=== PATIENT | female | born 1980 | race Caucasian/White ===

== ENCOUNTER → 2019-04-13 11:11 | Outpatient (BNVA) | payer MEDICAID, SELFPAY | PROVIDERS: Family Provider Family Medicine; Visit Provider Nurse Practitioner Family | DX: M25.561 Pain in right knee (principal) | CPT/HCPCS: 73562 ==

== ENCOUNTER → 2019-06-15 11:09 | Outpatient (BNVA) | payer MEDICAID, SELFPAY | PROVIDERS: Family Provider Family Medicine; Visit Provider Obstetrics & Gynecology | DX: N92.1 Excessive and frequent menstruation with irregular cycle (principal) | CPT/HCPCS: 84443; 85027 ==

== ENCOUNTER → 2019-10-08 11:33 | Outpatient (BNVA) | payer MEDICAID, SELFPAY | PROVIDERS: Family Provider Family Medicine; Visit Provider Emergency Medicine | DX: M79.601 Pain in right arm (principal) | CPT/HCPCS: 73030; 73080; 73110 ==

== ENCOUNTER → 2019-12-01 14:53 | Outpatient (BNVA) | payer MEDICAID, SELFPAY | PROVIDERS: Family Provider Family Medicine; Visit Provider Family Medicine | DX: S49.91XA Unspecified injury of right shoulder and upper arm, initial encounter (principal); J45.30 Mild persistent asthma, uncomplicated; K21.9 Gastro-esophageal reflux disease without esophagitis; J30.1 Allergic rhinitis due to pollen; J44.9 Chronic obstructive pulmonary disease, unspecified; M25.511 Pain in right shoulder | CPT/HCPCS: 73030; 73060 ==

== ENCOUNTER → 2020-01-08 14:16 | Outpatient (BNVA) | payer MEDICAID, SELFPAY | PROVIDERS: Family Provider Family Medicine; Visit Provider Obstetrics & Gynecology | DX: N94.6 Dysmenorrhea, unspecified (principal); N92.1 Excessive and frequent menstruation with irregular cycle; N85.2 Hypertrophy of uterus; N83.01 Follicular cyst of right ovary; N88.8 Other specified noninflammatory disorders of cervix uteri | CPT/HCPCS: 76830; 88305 ==

== ENCOUNTER → 2020-03-21 16:16 | Outpatient (BNVA) | payer MEDICAID, SELFPAY | PROVIDERS: Family Provider Family Medicine; Referring Provider Nurse Practitioner Family; Visit Provider Nurse Practitioner Family | DX: Z20.828 Contact with and (suspected) exposure to other viral communicable diseases (principal); N92.1 Excessive and frequent menstruation with irregular cycle | CPT/HCPCS: 87635 ==

== ENCOUNTER 2020-05-16 14:32 | Outpatient (CLI) | payer MEDICAID, SELFPAY ==
--- NOTE | 2020-05-16 14:45 | MR_ITS ---
WS: [id number] MRI RIGHT SHOULDER HISTORY: M25.519 - Pain in unspecified shoulder COMPARISON: 12/01/2019 shoulder radiograph TECHNIQUE: Multiplanar sequences of the shoulder joint are submitted. Mild AC joint hypertrophy. Increased T2 signal through the soft tissue hypertrophy with thickening of the joint capsule. There is very minimal impingement upon the supraspinatus muscle. Small amount of fluid in the subacromial joint. There is a small osteophyte from the distal undersurface of the acrom ion which is contacting the distal supraspinatus tendon. No fracture or marrow edema. Biceps tendon r emains in normal position. No os acromion. No rotator cuff tears are identified. There is some very mild increased signal in the distal supraspi natus tendon near the acromial osteophyte. No retraction or muscle edema or atrophy. No increased sig nal within the marrow to suggest a fracture. No labral tear. MR/MR shoulder RT wo con* [id number] IMPRESSION: 1. Mild AC joint hypertrophy and arthritis. 2. No rotator cuff tear. 3. Mild encroachment upon the distal supraspinatus tendon by a small osteophyt e from the undersurface of the distal acromion.
== END 2020-05-16 14:33 | disposition home or self-care (01) ==
PROVIDERS: PCP Family Medicine; Visit Provider Orthopaedic Surgery
DX: M13.811 Other specified arthritis, right shoulder (principal); M25.711 Osteophyte, right shoulder
CPT/HCPCS: 73221

== ENCOUNTER → 2020-10-24 11:05 | Outpatient (BNVA) | payer MEDICAID, SELFPAY | PROVIDERS: PCP Family Medicine; Visit Provider Family Medicine | DX: J45.30 Mild persistent asthma, uncomplicated (principal); Z13.6 Encounter for screening for cardiovascular disorders; Z13.1 Encounter for screening for diabetes mellitus; R30.0 Dysuria | CPT/HCPCS: 80053; 80061; 81000; 85025; 87077; 87086; 87184 ==

== ENCOUNTER → 2021-04-20 11:08 | Outpatient (BNVA) | payer MEDICAID, SELFPAY | PROVIDERS: PCP Family Medicine; Visit Provider Family Medicine | DX: Z11.59 Encounter for screening for other viral diseases (principal); Z20.822 Contact with and (suspected) exposure to COVID-19; J06.9 Acute upper respiratory infection, unspecified | CPT/HCPCS: 87635 ==

== ENCOUNTER → 2021-08-16 09:05 | Outpatient (BNVA) | payer MEDICAID, SELFPAY | PROVIDERS: PCP Physician Assistant; Visit Provider Orthopaedic Surgery | DX: M25.511 Pain in right shoulder (principal) | CPT/HCPCS: 99213 ==

== ENCOUNTER 2021-08-30 09:40 | Outpatient (CLI) | payer MEDICAID, SELFPAY ==
--- NOTE | 2021-08-30 09:55 | MM_ITS ---
WS: [id number] BILATERAL SCREENING DIGITAL BREAST TOMOSYNTHESIS MAMMOGRAM WITH CAD HISTORY: SCREENING COMPARISON: None available. Bilateral CC and MLO views with tomosynthesis and synthetic mammography submitted. Computer aided det ection analyzed. Breast composition: The breasts are heterogeneously dense, which may obscure small masses. No suspici ous masses, microcalcifications or architectural distortion. MM/[place] [id number] IMPRESSION: BI-RADS: 1-Negative FOLLOW UP: 1 Year Follow-up
--- NOTE | 2021-08-30 12:55 | PFTS_ITS ---
Date of Study:08/30/21 Date of Dictation: MECHANICS: Forced vital capacity (FVC) is reduced. Forced expiratory volume in one second (FEV1) is normal. FEV1/FVC is normal. FLOW VOLUME LOOP: No peak in the forced expiratory flow volume loop. The patient had difficulty following instructions. LUNG VOLUMES: Total lung capacity (TLC) is normal. Residual volume (RV) is increased. DIFFUSING CAPACITY FOR CARBON MONOXIDE: Normal. INTERPRETATION: The prebronchodilator spirometry is consistent with mild restriction. However, the forced expiratory maneuver may not have been accurate in predicting the forced vital capacity. No postbronchodilator spirometry was performed. The lung volumes are consistent with mild air trapping. Gas exchange (DLCO) is normal. Overall, the pulmonary function test appears to be near normal. MTDD
== END 2021-08-30 09:41 | disposition home or self-care (01) ==
LOC: RT 09:44
PROVIDERS: PCP Physician Assistant; Visit Provider Physician Assistant
DX: R06.00 Dyspnea, unspecified (principal); Z12.31 Encounter for screening mammogram for malignant neoplasm of breast
CPT/HCPCS: 77063; 77067; 94010; 94726; 94729

== ENCOUNTER → 2021-10-24 13:25 | Outpatient (BNVA) | payer MEDICAID, SELFPAY | PROVIDERS: PCP Physician Assistant; Referring Provider Physician Assistant; Visit Provider Obstetrics & Gynecology | DX: N92.0 Excessive and frequent menstruation with regular cycle (principal) | CPT/HCPCS: 83001; 84146; 84443; 84702; 85027 ==

== ENCOUNTER → 2021-11-06 10:35 | Outpatient (BNVA) | payer MEDICAID, SELFPAY | PROVIDERS: PCP Physician Assistant; Visit Provider Obstetrics & Gynecology | DX: N92.1 Excessive and frequent menstruation with irregular cycle (principal); N85.2 Hypertrophy of uterus; N94.6 Dysmenorrhea, unspecified | CPT/HCPCS: 76830; 76856 ==

== ENCOUNTER 2021-12-20 15:43 | Observation (INO) | payer MEDICAID, SELFPAY ==
[2021-12-18 09:05] VITALS: BMI 21.2
[2021-12-18 09:34] LABS: OR HCG Qualitative Urine Negative (Negative)
[2021-12-18 09:53] LABS: Basophils % 0.6 %; Eosinophils # 0.1 10^3/uL (0.0-0.8); Eosinophils % 1.3 %; Hematocrit 41.9 % (37.0-47.0); Hemoglobin 12.9 g/dL (11.5-15.3); Lymphocytes # 1.6 10^3/uL (0.8-4.8); Lymphocytes % 31.6 %; Mean Corpuscular HGB Conc 30.8 g/dL (30.0-36.0); Mean Corpuscular Hemoglobin 26.4 pg (28.0-34.0); Mean Corpuscular Volume 85.7 fl (81-99); Mean Platelet Volume 9.5 fL (7.4-10.4); Monocytes # 0.4 10^3/uL (0.2-0.9); Monocytes % 6.9 %; Neutrophils # 3.07 10^3/uL (1.8-7.7); Neutrophils % 59.2 %; Nucleated Red Blood Cells % 0 %; Platelet Count 404 10^3/cmm (130-400); Red Blood Count 4.89 10^6/uL (4.1-5.3); Red Cell Distribution Width 13.1 % (12.1-15.1); White Blood Count 5.2 10^3/uL (4.0-10.0)
[2021-12-18 10:26] LABS: Add Urine Culture? Yes; Add Urine Microscopic? YES; Bacteria Urine 1+ /hpf; Bilirubin Urine Neg (Negative); Blood Urine 3+ (Negative); Glucose Urine UA Norm (Normal); Ketones Urine Negative (Negative); Leukocyte Esterase Urine 2+ (Negative); Nitrate Urine Negative (Negative); Protein Urine Neg (Negative); RBC Urine >100 /hpf (0-2); Squamous Epithelial Cell Urine 0-4 /hpf (0-5); Urine Appearance Hazy (CLEAR); Urine Color Yellow (Yellow); Urobilinogen Urine Norm (Negative); WBC Urine 15-25 /hpf (0-5); pH Urine 6 (5-7)
[2021-12-18 10:34] LABS: Albumin Level 4.4 g/dL (3.5-5.2); Chloride 106 mmol/L (98-107); Potassium 4.8 mmol/L (3.5-5.1); Sodium 144 mmol/L (136-145)
[2021-12-18 10:48] LABS: Alanine Aminotransferase 12 U/L (0-33); Alkaline Phosphatase 65 U/L (35-105); Anion Gap 15.8 (5-19); Aspartate Amino Transferase 16 U/L (0-32); Blood Urea Nitrogen 9 mg/dL (6-20); Calcium 9.6 mg/dL (8.5-10.5); Carbon Dioxide 27 mmol/L (22-29); Globulin 3.8 g/dL (1.3-4.6); Glomerular Filtration Rate 78.7 mL/min (90-130); Glucose 107 mg/dL (65-115); Osmolality Calculated 297 mOsm/kg (285-295); Total Bilirubin 0.3 mg/dL (0.15-1.2); Total Protein 8.2 g/dL (6.6-8.7)
--- NOTE | 2021-12-18 16:41 | ANES.PREANE2 ---
Pre-Anesthetic Assessment Height/Weight: Height 1.6 m Weight 54.431 kg Preop Diagnosis: Dysmenorrhea, chronic pelvic pain Operation Date: 12/20/21 09:35 Proposed Procedures p Total Vaginal Hysterectomy 72362,R10.2(Not Applicable) - Billy Tran MD Familial anesthetic complications: None Was Beta Mariam taken within 24 hours: N/A Was Clonidine taken within 24 hours: N/A Social No alcohol and No tobacco Exam alert, oriented x 3, clear to auscultation bilaterally and regular rate & rhythm Airway Submandibular: within normal limits Cervical ROM: within normal limits Mallampati: Class I Dentition: full Comments: Comments: Missing teeth History/ROS No significant complaints Pulmonary Asthma CV/HEM None reported METS > 4 None reported Menometrorrhagia Hepatic None reported GI Gastroesophageal Reflux Disease (Well controlled ) Dysphagia Metabolic None reported Musc/skel None reported Neuropsych None reported Anesthetic Plan ASA status: 2 Anesthesia: Anesthesia Evaluation and General Other: We discussed risk and benefits of general anesthesia including PONV, sore throat (sometimes severe), corneal abrasion, positioning and peripheral nerve injuries, life threatening allergic reaction, post operative ICU admission requiring prolonged intubation, stroke, heart attack, , and rare incidences of recall. Patient consents to proceed with general anesthesia. Risk of > 500 ml blood loss (7ml/kg in children): No Medications/Allergies Home Medications Medication Instructions Recorded Confirmed Last Taken Type albuterol sulfate 2.5 mg inhalation Q4H PRN 05/31/20 12/18/21 Unknown History shortness of breath or wheezing miscellaneous medical supply See Rx Instructions miscellaneous 05/31/20 12/18/21 Unknown Rx .COMPLEX #1 ea albuterol sulfate 90 mcg/actuation 2 puff inhalation QID PRN 01/10/21 12/18/21 Unknown Rx aerosol inhaler (ProAir HFA) shortness of breath or wheezing 30 days #18 grams omeprazole 40 mg capsule,delayed 40 mg PO BID 30 days #60 caps 01/10/21 12/18/21 Unknown Rx release azelastine-fluticasone 137 mcg-50 1 spray intranasal BID 04/20/21 12/18/21 Unknown History mcg/spray nasal spray levocetirizine 5 mg tablet (Xyzal) 5 mg PO BID 04/20/21 12/18/21 Unknown History montelukast 10 mg tablet 10 mg PO DAILY 04/20/21 12/18/21 Unknown History Allergies Allergy/AdvReac Type Severity Reaction Status Date / Time aspirin Allergy ADR-Nausea Verified 12/18/21 09:01 [facility] Anesthesia Medical History Asthma GERD (gastroesophageal reflux disease) Insomnia Menometrorrhagia Seasonal allergic rhinitis Surgical History H/O tubal ligation (09/22/07) Performed by Dr. Martinez at [facility] in [place], [place] Family History Father Heart disease Family/Other Breast cancer maternal aunt, 30's Grandmother Hypertension maternal Denies family history of Colon cancer Ovarian cancer Diabetes Clotting disorder Hyperlipidemia Anesthesia complication Bleeding disorder Cancer Uterine cancer Thyroid condition Stroke Social History Smoking and tobacco status: never smoked Alcohol intake: never Female Reproductive History Date of last menstrual period: 04/09/19 Spontaneous abortions: No Data Anesthesia : 12/18/21 09:15 12/18/21 09:15 Short CBC 12/18/21 Range/Units 09:15 WBC 5.2 (4.0-10.0) 10^3/uL Hgb 12.9 (11.5-15.3) g/dL Hct 41.9 (37.0-47.0) % MCV 85.7 (81-99) fl Plt Count 404 H (130-400) 10^3/cmm Neut % (Auto) 59.2 % Neut # (Auto) 3.07 (1.8-7.7) 10^3/uL BMP 12/18/21 09:15 Sodium 144 Potassium 4.8 Chloride 106 Carbon Dioxide 27 BUN 9 Creatinine 0.8 Glucose 107 Calcium 9.6 Liver Function 12/18/21 Range/Units 09:15 Total Bilirubin 0.3 (0.15-1.2) mg/dL AST 16 (0-32) U/L ALT 12 (0-33) U/L Alkaline Phosphatase 65 (35-105) U/L Albumin 4.4 (3.5-5.2) g/dL Urine 12/18/21 Range/Units 08:57 Urine Color Yellow (Yellow) Urine Appearance Hazy A (CLEAR) Urine pH 6 (5-7) Ur Specific [place] 1.010 (1.005-1.030) Urine Protein Neg (Negative) Urine Glucose (UA) Norm (Normal) Urine Ketones Negative (Negative) Urine Nitrate Negative (Negative) Urine Bilirubin Neg (Negative) Ur Leukocyte Esterase 2+ H (Negative) Urine RBC >100 H (0-2) /hpf Urine WBC 15-25 H (0-5) /hpf Blood Bank 12/18/21 09:15 Blood Type A Positive Rho(D) Type Positive Antibody Screen Negative Cardiac Studies: No Data to Display
[2021-12-20] VITALS (15 sets, daily range): BP systolic 88–133; BP diastolic 54–97; PULSE 75–103; RESP 14–20; TEMP 36.3–37.1; O2SAT 93–98
[2021-12-20] MEDS: sodium chloride 0.9% 500 ML IV (11:38)
--- NOTE | 2021-12-20 11:39 | P.ANESUD_ITS ---
Pre-Anesthetic Update Pre-Anesthetic Assessment: Date of Surgery/Procedure: 12/20/21 Preop Lakia gnosis: Abnormal uterine bleeding, chronic pelvic pain Proposed Procedure: Operation Date: 12/20/21 12:55 Proposed Procedures p Total Vaginal Hysterectomy 31838,R10.2(Not Applicable) - Billy Tran MD Any changes to Pre-Anesthetic Assessment?: No Last Intake: Intake Last Liquid Date 12/19/21 Last Liquid Time 18:00 Last Solid Date 12/19/21 Last Solid Time 18:00 Vitals: Temperature 98.3 F 12/20/21 11:16 Temperature Source Temporal Artery S can 12/20/21 11:16 Pulse Rate 103 H 12/20/21 11:16 Respiratory Rate 18 12/20/21 11:16 Blood Pressure 133/97 12/20/21 11:16 Blood Pressure Vicenta n 109 12/20/21 11:16 Pulse Oximetry 98 12/20/21 11:16 Oxygen Delivery Me thod 12/20/21 11:21 Exam: Pre-Anes Outpt Exam: alert, oriented x 3, clear to auscultation bilaterally and regular rate & rhythm Cardiac Studies: No Data to Display
[2021-12-20] MEDS: scopolamine 1.5 Patch 1 PATCH TRANSDERMA (11:41)
[2021-12-20] MEDS: sodium chloride 0.9% 1,000 ML 30 ML IV (12:25)
--- NOTE | 2021-12-20 13:44 | W.PM.OPSUD ---
Surgery/Procedure H&P Update DATE OF PROCEDURE: December 20, 2021 DATE H&P PERFORMED: 12/18/21 H&P UPDATE INFORMATION: I have reviewed H&P completed within last 30 days, I have examined patient prior to procedure and No changes to prior documentation PREOP DIAGNOSIS: Abnormal uterine bleeding, chronic pelvic pain PLANNED PROCEDURE: Operation Date: 12/20/21 12:55 Proposed Procedures p Total Vaginal Hysterectomy 83434,R10.2(Not Applicable) - Billy Tran MD
[2021-12-20] MEDS: ceFOXitin 2,000 MG in sodium chloride 0.9% (plus) 50 ML 100 MG IV (14:05)
--- NOTE | 2021-12-20 15:34 | P.OP_ITS ---
Operative Report Date of procedure: December 20, 2021 Pre-op diagnosis: Preop Diagnosis Abnormal uterine bleeding, chronic pelvic pain Post-op diagnosis: Same as above Post-op findings: Enlarged uterus Procedure done: Total vaginal history Specimens removed/disposition: Uterus left and right fallopian tube Surgeon: Billy Tran MD Estimated blood loss (mL): 75 IV fluids (mL): 1,200 Urine output (mL): 200 Complications: None Procedure: After informed consent and risks, benefits, indications and alternatives reviewed with the patient was taken to the operating room. The patient was placed in dorsal lithotomy position prepped, and draped in the usual sterile fashion. The pre-procedure timeout verifying the correct patient, procedure, site and side, could not requirements was performed and acknowledge by the OR team. A Medrano catheter was placed. A Bookwalter vaginal retractor was placed into the vagina in usual manner visualize the cervix. Cervix was grasped with a single tooth tenaculum and circumferentially infiltrated with 2% lidocaine with epinephrine. Then cervix was circumferentially incised with bovie and the bladder was dissected off the pubovesical cervical fascia anteriorly with a sponge stick and Metzenbaum scissors. The anterior peritoneal reflection was identified and the anterior cul-de-sac was entered sharply with Metzenbaum scis sors. The same procedure was performed posteriorly and a posterior colpotomy was made through the posterior cul-de-sac space without difficulty and the posterior blade of the Bookwalter vaginal retractor was advanced posteriorly into the cul-de-sac. At this time, the left and right uterosacral ligaments were isolated and ligated with 0 Vicryl. The Enseal device was placed over the uterosacral ligaments on either side and was then used in a serial fashion up through the cardinal ligaments bilaterally cross-clamped, cut, and sealed with the Enseal device. Finally, the uterine arteries were cross-clamped, cut, sealed and ligated with the Enseal device. Hemostasis was assured. The broad ligaments were then serially clamped, sealed and cut with the Enseal device on both sides. Excellent hemostasis was visualized. Both cornua were clamped, sealed and cut with the Enseal device. Then the pedicles were then suture ligated with excellent hemostasis. The uterus was excised and submitted for pathologic evaluation. No other abnormalities were noted in the pelvic cavity. Then the right side tubo-ovarian ligament was identified. The ureter was confirmed along the pelvic side wall and peristalsis was noted. The Enseal device was then used to clamp, sealed and transcepted at middistance, again being sure to be clear of the ureter and the fallopian tube were removed. The same process was then repeated on the left side. Good hemostasis was assure on both sides. The peritoneum was then closed in a pursestring fashion with 0 Vicryl suture. The vaginal cuff angles were closed with [id number] #0 Vicryl suture on both sides and transfixed with the ipsilateral cardinal and uterosacral ligaments. The remainder of the vaginal cuff was closed with #0 Vicryl in a running locked fashion. At this time, instruments were removed from the vagina at hemostasis assured. The patient was given methylene blue IV. The Medrano catheter noted with clear en urine. The patient was taken out of dorsal lithotomy position and awakened from the general anesthesia. The patient tolerated the procedure well and was taken to the PACU recovery room in a stable condition. Sponge, lap, needle and instruments counts were correct x3.
--- NOTE | 2021-12-20 15:53 | SUR.PHASEI ---
1545 PT TO PACU 5 PT AWAKES TO VOICE, IV PATENT TO LT WRIST @20 WITH NS 800 ML UP AT KVO RATE PER GRAVITY , ABDOMEN SOFT NELLY PAD D/I , CAMPBELL TO DD WITH YELLOW URINE STATLOCK TO RT IINNER THIGH, SCDS ON BILAT AND WORKING, ID BRACELET TO RT WRIST , PT ID'D WITH 2 IDENTIFIERS.
--- NOTE | 2021-12-20 16:02 | SUR.PHASEI ---
1603 PT MORE ALERT TAKING ICECHIPS PT VERBALLY DENIES PAIN AND NAUSEA, VSS MONITOR SR WITH NO ECTOPY NOTED, IV TO LT WRIST PATENT AT MOD RATE BP 99/63 , ABDOMEN SOFT TO PALPATION.
--- NOTE | 2021-12-20 16:27 | SUR.PHASEI ---
REPORT CALLED TO FLOOR PT FAMIILY UPDATED AND WILL BE IN OB WAITING ROOM, VSS NELLY PAD D/I ABDOMEN SOFT.
--- NOTE | 2021-12-20 17:10 | ANE.PACU2 ---
Inpatient post-anesthesia follow up: Airway intact: Yes Vital signs: Temperature 97.4 F Pulse Rate 82 Respiratory Rate 16 Blood Pressure 102/66 Pulse Oximetry 94 Oxygen Delivery Me thod Room Air Oxygen Flow Rate 8 Fraction of Inspir ed Oxygen Hydration adequate: Yes Nausea and vomiting: No Pain level: 1 Mental status: Baseline
[2021-12-20] MEDS: pantoprazole DR 40 mg Tablet PO (19:08)
[2021-12-20] MEDS: docusate sodium 100 mg Capsule PO (19:08)
[2021-12-20] MEDS: ketorolac 30 mg/mL INJ IVP (21:16)
[2021-12-21 05:22] LABS: Hematocrit 36.1 % (37.0-47.0); Hemoglobin 11.4 g/dL (11.5-15.3); Mean Corpuscular HGB Conc 31.6 g/dL (30.0-36.0); Mean Corpuscular Hemoglobin 26.8 pg (28.0-34.0); Mean Corpuscular Volume 84.7 fl (81-99); Mean Platelet Volume 9.3 fL (7.4-10.4); Platelet Count 350 10^3/cmm (130-400); Red Blood Count 4.26 10^6/uL (4.1-5.3); White Blood Count 11.1 10^3/uL (4.0-10.0)
[2021-12-21 05:47] VITALS: BP 112/64; PULSE 90; RESP 14; O2SAT 95
[2021-12-21] MEDS: ibuprofen 800 mg tablet PO (09:36)
[2021-12-21] MEDS: docusate sodium 100 mg Capsule PO (09:36)
--- NOTE | 2021-12-21 09:39 | PM.OBGYDC ---
Discharge Providers GRINDING MACHINE OPERATOR Date of Admission: 12/20/21 15:43 Date of Discharge: 12/21/21 Attending Provider at Admission: Billy Tran MD Attending Provider at Discharge: Billy Tran MD Primary GRINDING MACHINE OPERATOR: Billy rTan MD Primary Care Provider: Ludy Nobles Reason for Visit Reason for Visit: Brief History: Mrs. Han 41-year-old female with a history of chronic pelvic pain Hospital Course Hospital Course Mrs. Han 41-year-old female admitted for planned total vaginal hysterectomy. The procedure was performed without complication. Overnight observation was uneventful. Adequate urine output. He is afebrile and hemodynamically stable postoperative day 1. Tolerating diet well. Ambulating without difficulty. Counseled regarding pelvic rest for 6 weeks (no sex, no tampons, no vaginal douches). Return to the emergency room if any fever, increased bleeding or pain. Physical Exam Narrative: GA: Alert and oriented ?3. HEENT: WNL. Heart: Regular rate and rhythm. Lungs: Clear to auscultation bilaterally. Abdomen: Bowel sounds present, nontender, minimal tenderness, incision clean and dry, no redness, pain or edema. [employer] COACH: Scant bleeding. Extremities: No edema, no cyanosis, no calves pain. Urinary Catheter Management: Medrano Latex: Cath Placed During This Visit: yes, but has since been removed by the nurse Reason for Continuing Indwelling Catheter: Decision to DC Catheter Urinary Catheter Date of Insertion: 12/20/21 Urinary Catheter Time of Insertion: 14:32 Date Urinary Catheter Removed: 12/21/21 Time Urinary Catheter Discontinued: 05:00 History History History 4 Term 3 0 Miscarriages/Ectopic 1 Living Children 3 Discharge Data Studies Completed and Pending Pending at discharge Category Date Time Status Pathology: Surgical [PTH] Routine Pth 12/20/21 15:40 Received Laboratory Results WBC 11.1 10^3/uL (4.0-10.0) H 12/21/21 05:10 RBC 4.26 10^6/uL (4.1-5.3) 12/21/21 05:10 Hgb 11.4 g/dL (11.5-15.3) L 12/21/21 05:10 Hct 36.1 % (37.0-47.0) L 12/21/21 05:10 MCV 84.7 fl (81-99) 12/21/21 05:10 MCH 26.8 pg (28.0-34.0) L 12/21/21 05:10 MCHC 31.6 g/dL (30.0-36.0) 12/21/21 05:10 RDW 13.0 % (12.1-15.1) 12/21/21 05:10 Plt Count 350 10^3/cmm (130-400) 12/21/21 05:10 MPV 9.3 fL (7.4-10.4) 12/21/21 05:10 Neut % (Auto) 59.2 % 12/18/21 09:15 Lymph % (Auto) 31.6 % 12/18/21 09:15 [place] % (Auto) 6.9 % 12/18/21 09:15 Eos % (Auto) 1.3 % 12/18/21 09:15 Baso % (Auto) 0.6 % 12/18/21 09:15 Neut # (Auto) 3.07 10^3/uL (1.8-7.7) 12/18/21 09:15 Lymph # (Auto) 1.6 10^3/uL (0.8-4.8) 12/18/21 09:15 [place] # (Auto) 0.4 10^3/uL (0.2-0.9) 12/18/21 09:15 Eos # (Auto) 0.1 10^3/uL (0.0-0.8) 12/18/21 09:15 Baso # (Auto) 0.0 10^3/uL (0.0-0.1) 12/18/21 09:15 Nucleated RBC % (auto) 0 % 12/18/21 09:15 Nucleated RBCs # 0.0 /100WBC 12/18/21 09:15 Sodium 144 mmol/L (136-145) 12/18/21 09:15 Potassium 4.8 mmol/L (3.5-5.1) 12/18/21 09:15 Chloride 106 mmol/L (98-107) 12/18/21 09:15 Carbon Dioxide 27 mmol/L (22-29) 12/18/21 09:15 Anion Gap 15.8 (5-19) 12/18/21 09:15 BUN 9 mg/dL (6-20) 12/18/21 09:15 Creatinine 0.8 mg/dL (0.5-0.9) 12/18/21 09:15 GFR Calculation 78.7 mL/min (90-130) L 12/18/21 09:15 Glucose 107 mg/dL (65-115) 12/18/21 09:15 Calculated Osmolality 297 mOsm/kg (285-295) H 12/18/21 09:15 Calcium 9.6 mg/dL (8.5-10.5) 12/18/21 09:15 Total Bilirubin 0.3 mg/dL (0.15-1.2) 12/18/21 09:15 AST 16 U/L (0-32) 12/18/21 09:15 ALT 12 U/L (0-33) 12/18/21 09:15 Alkaline Phosphatase 65 U/L (35-105) 12/18/21 09:15 Total Protein 8.2 g/dL (6.6-8.7) 12/18/21 09:15 Albumin 4.4 g/dL (3.5-5.2) 12/18/21 09:15 Globulin 3.8 g/dL (1.3-4.6) 12/18/21 09:15 Urine Color Yellow (Yellow) 12/18/21 08:57 Urine Appearance Hazy (CLEAR) A 12/18/21 08:57 Urine pH 6 (5-7) 12/18/21 08:57 Ur Specific [place] 1.010 (1.005-1.030) 12/18/21 08:57 Urine Protein Neg (Negative) 12/18/21 08:57 Urine Glucose (UA) Norm (Normal) 12/18/21 08:57 Urine Ketones Negative (Negative) 12/18/21 08:57 Urine Blood 3+ (Negative) H 12/18/21 08:57 Urine Nitrate Negative (Negative) 12/18/21 08:57 Urine Bilirubin Neg (Negative) 12/18/21 08:57 Urine Urobilinogen Norm mg/dL (Negative) 12/18/21 08:57 Ur Leukocyte Esterase 2+ (Negative) H 12/18/21 08:57 Urine RBC >100 /hpf (0-2) H 12/18/21 08:57 Urine WBC 15-25 /hpf (0-5) H 12/18/21 08:57 Ur Squamous Epith Cells 0-4 /hpf (0-5) H 12/18/21 08:57 Amorphous Sediment Not Reportable 12/18/21 08:57 Urine Bacteria 1+ /hpf (NONE) H 12/18/21 08:57 Urine HCG, Qual Negative (Negative) 12/18/21 08:57 Blood Type A Positive 12/18/21 09:15 Rho(D) Type Positive 12/18/21 09:15 Antibody Screen Negative 12/18/21 09:15 Vitals Last Vital Signs Temp 98.0 F 12/20/21 23:45 Pulse 90 12/21/21 05:47 Resp 14 12/21/21 05:47 BP 112/64 12/21/21 05:47 Pulse Ox 95 12/21/21 05:47 O2 Del Method 12/21/21 05:47 O2 Flow Rate 8 12/20/21 15:50 Discharge Plan Discharge Patient Disposition: Home Condition: Stable Prescriptions: New hydrocodone-acetaminophen 5-325 mg tablet 1 tab PO Q4H PRN (Reason: pain) Qty: 20 0RF acetaminophen 325 mg capsule 325 mg PO Q4H PRN (Reason: fever or pain) Qty: 60 0RF Continued albuterol sulfate 2.5 mg /3 mL (0.083 %) solution for nebulization 2.5 mg inhalation Q4H PRN (Reason: shortness of breath or wheezing) miscellaneous medical supply Misc See Rx Instructions miscellaneous .COMPLEX Qty: 1 0RF Rx Instructions: nebulizer machine and new tubing/supplies miscellaneous; montelukast 10 mg tablet 10 mg PO DAILY levocetirizine [Xyzal] 5 mg tablet 5 mg PO BID azelastine-fluticasone 137-50 mcg/spray spray,non-aerosol 1 spray intranasal BID Rx Instructions: administer into each nostril omeprazole 40 mg capsule,delayed release(DR/EC) 40 mg PO BID 30 Days Qty: 60 5RF albuterol sulfate [ProAir HFA] 90 mcg/actuation HFA aerosol inhaler 2 puff INHALATION QID PRN (Reason: shortness of breath or wheezing) 30 Days Qty: 18 5RF Discharge Orders: Discharge Order (Routine); Ordered 12/21/21 Ordered By: Billy Li: Billy Tran MD [Physician] - 2 weeks Discharge Diet: Advance as tolerated and Usual diet Discharge Activity: Limit activity as instructed Patient Instructions: Opioid Safety, Vaginal Hysterectomy (GEN) Activity Restrictions/Additional Instructions: 1. Please call [facility] on next working day to make your post-operative appointment in 2 weeks. 2. Please stay home until you come back to the clinic on first post-operative check up. 3. Please follow instructions on your medications CAREFULLY. 4. If you have abdominal incision, do not cover it unless dressing is necessary because of drainage. OK to shower, but avoid bath. Leave steri-strips until they fall off. If they are still on one week after surgery, you may remove them. 5. If you had vaginal surgery or vaginal repair, Dr. Tran may instruct you to take SITZ bath. 6. Yellow, blood tinged odorous vaginal discharge is usually normal after hysterectomy or vaginal surgeries. 7. No sexual intercourse, tampons, or douches until you are completely released from the post-operative care. 8. Avoid constipation by eating right and maybe using some Metamucil or Milk of Magnesia. 9. All prescription refills are given during the working hours. Please do no wait till it runs out. Call the clinic at [phone] before your medication runs out. The clinic will get in touch with your doctor to prescribe medications if necessary. 10. Please remain within 40 mile radius from our hospital because emergencies do happen now and then during the post-operative period. 11. If you have stairs at home, take one step at a time slowly and minimize the number of trips. It helps to stay in one floor for the next few days. No lifting except what you can lift by one hand until you are released from the post-operative care. 12. Driving is discouraged until you are well healed. It may be 3-4 weeks before you feel strong enough to drive. You should be able to turn and look through the rear window without pain and you should be able to push the brake pedal very hard without pain before you drive. No fast rules, but SAFETY should be your primary concern. DO NOT drive if you are on sedating medications such as narcotics. 13. Call the clinic (during working hours) to make urgent appointment or go to the Emergency room, if any of the following occurs: i. Vaginal bleeding becomes heavy, more than a period. ii. Incision becomes red and sore, or drains pus. iii. Your temperature is over 100.4 or you have chill. iv. IV site becomes red and swollen (a little ``knot?? is usually OK) v. Persistent nausea and vomiting vi. Persistent constipation or diarrhea vii. Rash or allergic reaction to medications. Discharge Attestations GRINDING MACHINE OPERATOR Time Spent in Discharge Care*: greater than 30 min Coding Level of Care Code Acute Pipe Foreman for Janel Patel
[2021-12-21 11:56] VITALS: BP 112/73; PULSE 84; RESP 17; TEMP 36.9
== END 2021-12-21 11:58 | disposition home or self-care (01) ==
LOC: OBGYN 15:43
PROVIDERS: Admitting Provider Obstetrics & Gynecology; PCP Physician Assistant; Visit Provider Obstetrics & Gynecology
PROC: (CPT 58262; principal; 2021-12-20 12:45)
DX: N93.9 Abnormal uterine and vaginal bleeding, unspecified (principal); R10.2 Pelvic and perineal pain; G89.29 Other chronic pain; K21.9 Gastro-esophageal reflux disease without esophagitis
CPT/HCPCS: 58262; 36415; 80053; 81001; 81025; 84703; 85025; 85027; 86850; 86900; 87086; 88307; G0378; J0694; J1100; J1170; J1885; J2250; J2405; J2704; J2710; J3010; J3490; J7030; J7040; Q9968

== ENCOUNTER 2022-09-11 10:38 | Outpatient (CLI) | payer MEDICAID, SELFPAY ==
--- NOTE | 2022-09-11 10:52 | MM_ITS ---
WS: [id number] BILATERAL 3D TOMOSYNTHESIS DIGITAL SCREENING MAMMOGRAPHY WITH CAD CLINICAL INFORMATION: SCREENING HISTORY: Screening mammogram. No current complaints. COMPARISON: 2021 TECHNIQUE: Bilateral CC and MLO views. FINDINGS: Scattered fibroglandular densities bilaterally. Slightly asymmetric density anterior LEFT breast stefania ures 12 mm best seen on the MLO view. Recommend LEFT breast diagnostic mammography and ultrasound if persistent. RIGHT breast is unremarkable and unchanged. MM/[place] [id number] IMPRESSION: BI-RADS: 0-Incomplete: Need additional imaging evaluation FOLLOW UP: Need Additional Imaging Recommend LEFT breast diagnostic mammography with spot compression views and ul trasound if persistent.
== END 2022-09-11 10:39 | disposition home or self-care (01) ==
PROVIDERS: PCP Family Medicine; Visit Provider Family Medicine
DX: Z12.31 Encounter for screening mammogram for malignant neoplasm of breast (principal)
CPT/HCPCS: 77063; 77067

== ENCOUNTER 2022-10-02 09:14 | Outpatient (CLI) | payer MEDICAID, SELFPAY ==
--- NOTE | 2022-10-02 09:20 | MM_ITS ---
WS: [id number] LEFT 3D TOMOSYNTHESIS DIGITAL MAMMOGRAPHY WITH CAD CLINICAL INFORMATION: ABNORMAL MAMMO HISTORY: Additional views COMPARISON: September 11, TECHNIQUE: 3 views of the left breast were obtained. FINDINGS: Scattered fibroglandular densities of the left breast. Stable previously described faint asymmetric d ensity anterior LEFT breast measuring 12 mm near the 12 to 1:00 position partially compresses out on the spot compression views. Ultrasound described below. ULTRASOUND BREAST LEFT TECHNIQUE: Ultrasound left breast focused area of concern. CLINICAL INFORMATION: ABNORMAL MAMMO FINDINGS: Ultrasound LEFT breast upper-outer quadrant. No suspicious cystic or solid lesions. Normal underlying gastric tissue. No suspicious lesions to target for biopsy. Findings are benign. Recommend return to annual screening mammography. MM/[place] [id number] IMPRESSION: BI-RADS: 2-Benign FOLLOW UP: 1 Year Follow-up Recommend return to annual screening mammography.
== END 2022-10-02 09:15 | disposition home or self-care (01) ==
LOC: RAD 09:16
PROVIDERS: PCP Family Medicine; Visit Provider Family Medicine
DX: R92.8 Other abnormal and inconclusive findings on diagnostic imaging of breast (principal)
CPT/HCPCS: 76642; 77061; G0279

== ENCOUNTER → 2022-10-02 12:08 | Outpatient (BNVA) | payer MEDICAID, SELFPAY | PROVIDERS: PCP Family Medicine; Visit Provider Obstetrics & Gynecology | DX: R32 Unspecified urinary incontinence (principal) | CPT/HCPCS: 81000 ==

== ENCOUNTER 2022-10-16 13:47 | Outpatient (CLI) | payer MEDICAID, SELFPAY ==
--- NOTE | 2022-10-16 14:15 | USR_ITS ---
PROCEDURE INFORMATION: Exam: US Nonobstetric Pelvis; Complete Exam date and time: 10/16/2022 2:53 PM Age: 41 years old Clinical indication: Pelvic pain and perianal pain; Prior surgery; Surgery date: 1-6 months; Surgery type: Hysterectomy; Additional info: R10.2 - pelvic and perineal pain, S/P hysterectomy TECHNIQUE: Imaging protocol: Transabdominal pelvic nonobstetric ultrasound. Complete exam. Real time ultrasound with image documentation. COMPARISON: US pelv w/transvag [id number] 11/06/2021 10:38 AM FINDINGS: Uterus: Uterus has been removed. Right ovary/adnexa: Right ovary is unremarkable in size measuring 1.9 x 1.9 x 1.9 cm. Normal Doppler flow. No adnexal mass. Left ovary/adnexa: Left ovary is unremarkable in overall size and contour measuring 3.1 x 2.0 x 2.4 cm. 1.6 x 1.2 cm complex cyst arising the left ovary likely functional in nature. Normal Doppler flow. No adnexal mass. Vagina: Visualized vaginal cuff is unremarkable. Intraperitoneal space: There are no masses or free fluid seen in the cul-de-sac. Urinary bladder: Not visualized.. US/US pelv w/transvag [id number] IMPRESSION: 1. 1.6 cm complex cystic structure left ovary likely functional in nature. 2. Prior hysterectomy.
== END 2022-10-16 13:48 | disposition home or self-care (01) ==
PROVIDERS: PCP Family Medicine; Visit Provider Obstetrics & Gynecology
DX: R10.2 Pelvic and perineal pain (principal); G89.29 Other chronic pain; Z90.710 Acquired absence of both cervix and uterus
CPT/HCPCS: 76830; 76856

== ENCOUNTER 2022-11-14 08:19 | Observation (INO) | payer MEDICAID, SELFPAY ==
[2022-11-09 10:47] VITALS: BMI 23.0
[2022-11-09 11:11] LABS: Basophils % 0.4 %; Eosinophils # 0.1 10^3/uL (0.0-0.8); Eosinophils % 1.1 %; Hematocrit 41.9 % (37.0-47.0); Hemoglobin 13.3 g/dL (11.5-15.3); Lymphocytes % 27.1 %; Mean Corpuscular HGB Conc 31.7 g/dL (30.0-36.0); Mean Corpuscular Hemoglobin 26.8 pg (28.0-34.0); Mean Corpuscular Volume 84.5 fl (81-99); Mean Platelet Volume 9.2 fL (7.4-10.4); Monocytes # 0.7 10^3/uL (0.2-0.9); Monocytes % 9.1 %; Neutrophils % 61.8 %; Nucleated Red Blood Cells % 0 %; Platelet Count 322 10^3/cmm (130-400); Red Blood Count 4.96 10^6/uL (4.1-5.3); Red Cell Distribution Width 13.5 % (12.1-15.1); White Blood Count 7.5 10^3/uL (4.0-10.0)
[2022-11-09 11:19] LABS: Urine Appearance Hazy (CLEAR); Urine Color Yellow (Yellow)
[2022-11-09 11:20] LABS: Add Urine Microscopic? YES; Bacteria Urine 1+ /hpf; Bilirubin Urine Neg (Negative); Blood Urine 2+ (Negative); Glucose Urine UA Norm (Normal); Ketones Urine Negative (Negative); Leukocyte Esterase Urine Negative (Negative); Nitrate Urine Negative (Negative); Protein Urine Neg (Negative); RBC Urine RARE /hpf (0-2); Urobilinogen Urine Norm (Negative); WBC Urine RARE /hpf (0-5); pH Urine 5 (5-7)
[2022-11-09 11:38] LABS: Alanine Aminotransferase 15 U/L (0-33); Albumin Level 4.2 g/dL (3.5-5.2); Alkaline Phosphatase 52 U/L (35-105); Anion Gap 13.1 (5-19); Aspartate Amino Transferase 15 U/L (0-32); Blood Urea Nitrogen 14 mg/dL (6-20); Calcium 9.5 mg/dL (8.5-10.5); Carbon Dioxide 26 mmol/L (22-29); Chloride 102 mmol/L (98-107); Creatinine Clr Calc Pharmacy 106.1049; Globulin 3.4 g/dL (1.3-4.6); Glomerular Filtration Rate 109.6 mL/min (90-130); Glucose 107 mg/dL (65-115); Osmolality Calculated 285 mOsm/kg (285-295); Potassium 4.1 mmol/L (3.5-5.1); Sodium 137 mmol/L (136-145); Total Bilirubin 0.3 mg/dL (0.15-1.2); Total Protein 7.6 g/dL (6.6-8.7)
--- NOTE | 2022-11-10 11:02 | P.ANESASSM_ITS ---
Pre-Anesthetic Assessment Height/Weight: Height 1.6 m Weight 58.967 kg Operation Date: 11/14/22 07:20 Proposed Procedures p Single incision midurethral sling 89954,N39.46(Not Applicable) - Billy Tran MD Social No alcohol and No tobacco Exam alert and oriented x 3 Airway Submandibular: within normal limits Cervical ROM: within normal limits Mallampati: Class I Pulmonary Asthma GI Gastroesophageal Reflux Disease Neuropsych Anxiety Anesthetic Plan ASA status: 2 Anesthesia: General (TIVA with stress dose steroids) Medications/Allergies Home Medications Medication Instructions Recorded Confirmed Last Taken Type albuterol sulfate 2.5 mg/3 mL 2.5 mg inhalation Q4H PRN 05/31/20 11/09/22 11/09/22 History (0.083 %) solution for nebulization shortness of breath or wheezing miscellaneous medical supply See Rx Instructions miscellaneous 05/31/20 11/09/22 11/09/22 Rx .COMPLEX #1 ea albuterol sulfate 90 mcg/actuation 2 puff inhalation QID PRN 01/10/21 11/09/22 11/09/22 Rx aerosol inhaler (ProAir HFA) shortness of breath or wheezing 30 days #18 grams omeprazole 40 mg capsule,delayed 40 mg PO BID 30 days #60 caps 01/10/21 11/09/22 11/09/22 Rx release azelastine-fluticasone 137 mcg-50 1 spray intranasal BID 04/20/21 11/09/22 11/09/22 History mcg/spray nasal spray levocetirizine 5 mg tablet (Xyzal) 5 mg PO BID 04/20/21 11/09/22 11/09/22 History montelukast 10 mg tablet 10 mg PO DAILY 04/20/21 11/09/22 11/09/22 History acetaminophen 325 mg capsule 325 mg PO Q4H PRN fever or pain 12/21/21 11/09/22 Unknown Rx #60 caps oxybutynin chloride 5 mg tablet 5 mg PO DAILY incontinence #30 tabs 10/02/22 11/09/22 11/09/22 Rx prednisone 20 mg tablet 20 mg PO BID 10/26/22 11/09/22 11/09/22 History Allergies Allergy/AdvReac Type Severity Reaction Status Date / Time aspirin Allergy ADR-Nausea Verified 11/09/22 10:41 [facility] Anesthesia Medical History Asthma GERD (gastroesophageal reflux disease) Insomnia Menometrorrhagia Seasonal allergic rhinitis Surgical History H/O tubal ligation (09/22/07) Performed by Dr. Martinez at [facility] in [place], [place] Hx of hysterectomy (~12/21/21) TVH with bilateral salpingectomy performed by Dr. Tran at [facility] for chronic pelvic pain and AUB Family History Father Heart disease Family/Other Breast cancer maternal aunt, 30's Grandmother Hypertension maternal Denies family history of Colon cancer Ovarian cancer Diabetes Clotting disorder Hyperlipidemia Anesthesia complication Bleeding disorder Cancer Uterine cancer Thyroid condition Stroke Social History Smoking and tobacco status: never smoked Alcohol intake: never Substance/Drug Use: never Female Reproductive History Spontaneous abortions: No Data Anesthesia 11/09/22 11:00 11/09/22 11:00 Short CBC 11/09/22 Range/Units 11:00 WBC 7.5 (4.0-10.0) 10^3/uL Hgb 13.3 (11.5-15.3) g/dL Hct 41.9 (37.0-47.0) % MCV 84.5 (81-99) fl Plt Count 322 (130-400) 10^3/cmm Neut % (Auto) 61.8 % Neut # (Auto) 4.60 (1.8-7.7) 10^3/uL BMP 11/09/22 11:00 Sodium 137 Potassium 4.1 Chloride 102 Carbon Dioxide 26 BUN 14 Creatinine 0.6 Glucose 107 Calcium 9.5 Liver Function 11/09/22 Range/Units 11:00 Total Bilirubin 0.3 (0.15-1.2) mg/dL AST 15 (0-32) U/L ALT 15 (0-33) U/L Alkaline Phosphatase 52 (35-105) U/L Albumin 4.2 (3.5-5.2) g/dL Urine 11/09/22 Range/Units 10:55 Urine Color Yellow (Yellow) Urine Appearance Hazy A (CLEAR) Urine pH 5 (5-7) Ur Specific [place] 1.010 (1.005-1.030) Urine Protein Neg (Negative) Urine Glucose (UA) Norm (Normal) Urine Ketones Negative (Negative) Urine Nitrate Negative (Negative) Urine Bilirubin Neg (Negative) Ur Leukocyte Esterase Negative (Negative) Urine RBC Rare (0-2) /hpf Urine WBC Rare (0-5) /hpf Cardiac Studies: No Data to Display
[2022-11-14] VITALS (18 sets, daily range): BP systolic 99–131; BP diastolic 60–95; PULSE 84–107; RESP 14–21; TEMP 36.1–36.6; O2SAT 95–99
[2022-11-14] MEDS: scopolamine 1.5 Patch 1 PATCH TRANSDERMA (06:14)
[2022-11-14] MEDS: sodium chloride 0.9% 1,000 ML 30 ML IV (06:15)
--- NOTE | 2022-11-14 06:57 | P.ANESUD_ITS ---
Pre-Anesthetic Update Pre-Anesthetic Assessment: Date of Surgery/Procedure: 11/14/22 Preop Lakia gnosis: Mixed incontinence Proposed Procedure: Operation Date: 11/14/22 07:00 Proposed Procedures p Single incision midurethral sling 19138,N39.46(Not Applicable) - Billy Tran MD Any changes to Pre-Anesthetic Assessment?: No Last Intake: Intake Last Liquid Date 11/13/22 Last Liquid Time 18:00 Last Solid Date 11/13/22 Last Solid Time 18:00 Vitals: Temperature 98 F 11/14/22 05:52 Temperature Source Temporal Artery S can 11/14/22 05:52 Pulse Rate 90 11/14/22 05:52 Pulse Rhythm Regular 11/14/22 06:10 Pulse Strength 3+ Normal 11/14/22 06:10 Respiratory Rate 16 11/14/22 05:52 Blood Pressure 131/95 11/14/22 05:52 Blood Pressure Vicenta n 107 11/14/22 05:52 Pulse Oximetry 99 11/14/22 05:52 Oxygen Delivery Me thod Room Air 11/14/22 06:10 Exam: Pre-Anes Outpt Exam: No alert, No oriented x 3, No clear to auscultation bilaterally and No regular rate & rhythm Cardiac Studies: No Data to Display
--- NOTE | 2022-11-14 07:00 | W.PM.OPSUD ---
Surgery/Procedure H&P Update DATE OF PROCEDURE: November 14, 2022 DATE H&P PERFORMED: 10/26/22 H&P UPDATE INFORMATION: I have reviewed H&P completed within last 30 days, I have examined patient prior to procedure and No changes to prior documentation PREOP DIAGNOSIS: Mixed incontinence PLANNED PROCEDURE: Operation Date: 11/14/22 07:00 Proposed Procedures p Single incision midurethral sling 50806,N39.46(Not Applicable) - Billy Tran MD
[2022-11-14] MEDS: ceFAZolin 2,000 MG in sodium chloride 0.9% (plus) 50 ML 100 MG IV (07:02)
[2022-11-14] MEDS: lidocaine-epi 2% 20 mL INJ INJECTION (07:26)
--- NOTE | 2022-11-14 07:47 | PM.OP ---
Operative Report Date of procedure: November 14, 2022 Pre-op diagnosis: Preop Diagnosis Mixed incontinence Post-op diagnosis: same Procedure done: Single incision mid urethral sling Implants: Coloplast Altis sling Surgeon: Billy Tran MD Estimated blood loss (mL): 10 IV fluids (mL): 600 Urine output (mL): 100 Brief History: Mrs. Han 41-year-old female post hysterectomy with mixed urinary incontinence. Procedure: After obtaining informed consent, the patient was taken to the operating room and placed in the supine position, given general anesthesia, and prepped and draped in sterile fashion. The abdomen, vulva and vagina were prepped and draped in a sterile manner. A time out procedure was performed. The anterior vaginal mucosa beneath the midurethra was infiltrated with 0.5% Marcaine with epinephrine. A vertical midline incision was made beneath the midurethra, nearly 1.5 cm length. Careful submucosal dissection was performed bilaterally up to the interior portion of the inferior pubic ramus. The insertion of adductor longus tendon on the patient?s pubic ramus was identified as reference land sung. Palpated the notch along the internal edge of ischiopubic ramus where the adductor longus tendon and the inferior pubic ramus meet. The Altis single incision sling (SIS) was selected. Then the needle of the SIS inserted aiming at the location of this notch. One of the integrated self-fixating tips place onto the needle by sliding it over the end of the needle. The needle/sling assembly was inserted toward the location of identified reference notch making sure that the flat of the handle is perpendicular to the desired path. The needle was tracked along the posterior surface of the ischiopubic ramus until the midline sung on the mesh is approximately at the midline position under the urethra. The needle was removed and the same was repeated on the contralateral side until the appropriate sling tension under the urethra was achieved ensuring that the mesh lays flat. The needle was removed and vaginal incision was closed in a running interlocking fashion with 2-0 Vicryl. Excellent hemostasis was obtained. Sponge, lap, needle, and instrument counts were correct times three. The patient was taken to the recovery room, awake and in stable condition.
--- NOTE | 2022-11-14 08:20 | ANE.PACU2 ---
Inpatient post-anesthesia follow up: Airway intact: Yes Vital signs: Temperature 97.0 F Pulse Rate 92 Respiratory Rate 14 Blood Pressure 110/75 Pulse Oximetry 96 Oxygen Delivery Me thod Room Air Oxygen Flow Rate Fraction of Inspir ed Oxygen Hydration adequate: Yes Nausea and vomiting: No Pain level: 1 Mental status: Baseline
[2022-11-14] MEDS: ketorolac 30 mg/mL INJ IVP ×3 (11:35→20:59)
[2022-11-14] MEDS: dextrose 5%-lactated ringers 1,000 ML 125 ML IV ×2 (11:35→18:59)
[2022-11-14] MEDS: docusate sodium 100 mg Capsule PO ×2 (11:35→17:18)
[2022-11-14] MEDS: pantoprazole DR 40 mg Tablet PO ×2 (11:36→17:18)
[2022-11-14] MEDS: montelukast sodium 10 mg Tablet PO (11:36)
[2022-11-14] MEDS: acetaminophen 500 mg Tablet 1000 MG PO (14:28)
[2022-11-14] MEDS: simethicone 80 mg Chew PO (20:59)
--- NOTE | 2022-11-14 21:17 | PC.NURSE ---
Patient complaining of severe RLE pain resulting in not being able to move leg. Able to pivot and turn patient as well as patient able to place weight on extremity. But when asked to extend leg, patient stated I cannot feel it. Unable to ambulate patient outside room, will continue to monitor.
[2022-11-15] MEDS: ketorolac 30 mg/mL INJ IVP (02:51)
[2022-11-15] MEDS: dextrose 5%-lactated ringers 1,000 ML 125 ML IV (02:51)
[2022-11-15 05:15] VITALS: BP 117/76; PULSE 95; RESP 18; O2SAT 96
[2022-11-15] MEDS: simethicone 80 mg Chew PO (05:41)
[2022-11-15 05:59] LABS: Hematocrit 38.5 % (37.0-47.0); Hemoglobin 11.4 g/dL (11.5-15.3); Mean Corpuscular HGB Conc 29.6 g/dL (30.0-36.0); Mean Corpuscular Hemoglobin 27.5 pg (28.0-34.0); Mean Corpuscular Volume 92.8 fl (81-99); Mean Platelet Volume 9.2 fL (7.4-10.4); Platelet Count 301 10^3/cmm (130-400); Red Blood Count 4.15 10^6/uL (4.1-5.3); Red Cell Distribution Width 13.3 % (12.1-15.1); White Blood Count 11.9 10^3/uL (4.0-10.0)
[2022-11-15] MEDS: pantoprazole DR 40 mg Tablet PO (08:34)
[2022-11-15] MEDS: montelukast sodium 10 mg Tablet PO (08:34)
[2022-11-15] MEDS: ibuprofen 800 mg tablet PO (08:34)
[2022-11-15] MEDS: docusate sodium 100 mg Capsule PO (08:34)
--- NOTE | 2022-11-15 13:16 | PM.OBGYDC ---
Discharge Providers ORDER DISPATCHER CHIEF Date of Admission: 11/14/22 08:19 Date of Discharge: 11/15/22 Attending Provider at Admission: Billy Tran MD Attending Provider at Discharge: Billy Tran MD Primary ORDER DISPATCHER CHIEF: Billy Tran MD Primary Care Provider: Aldo Aranda MD Hospital Course Hospital Course Mrs. Han 41-year-old female post hysterectomy developed urinary stress incontinence. She was admitted for planned single incision mid urethral sling. Procedure was performed without complications. Tolerating diet well. Refers some discomfort in her right leg. PVR within normal limits. Counseled regarding pelvic rest for 6 weeks (no sex, no tampons, no vaginal douches). Return to the emergency room if any fever, increased bleeding or pain. Instructed to follow-up to the clinic next week Physical Exam Narrative: GA: Alert and oriented ?3. HEENT: WNL. Heart: Regular rate and rhythm. Lungs: Clear to auscultation bilaterally. Abdomen: Bowel sounds present, nontender, minimal tenderness, incision clean and dry, no redness, pain or edema. 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 Extremities: No edema, no cyanosis, no calves pain. Urinary Catheter Management: Medrano Latex: Cath Placed During This Visit: yes, but has since been removed by the nurse Reason for Continuing Indwelling Catheter: Decision to DC Catheter Urinary Catheter Date of Insertion: 11/14/22 Urinary Catheter Time of Insertion: 07:26 Date Urinary Catheter Removed: 11/15/22 Time Urinary Catheter Discontinued: 05:52 History History History 4 Term 3 0 Miscarriages/Ectopic 1 Living Children 3 Discharge Data Studies Completed and Pending Laboratory Results WBC 11.9 10^3/uL (4.0-10.0) H 11/15/22 05:45 RBC 4.15 10^6/uL (4.1-5.3) 11/15/22 05:45 Hgb 11.4 g/dL (11.5-15.3) L 11/15/22 05:45 Hct 38.5 % (37.0-47.0) 11/15/22 05:45 MCV 92.8 fl (81-99) 11/15/22 05:45 MCH 27.5 pg (28.0-34.0) L 11/15/22 05:45 MCHC 29.6 g/dL (30.0-36.0) L 11/15/22 05:45 RDW 13.3 % (12.1-15.1) 11/15/22 05:45 Plt Count 301 10^3/cmm (130-400) 11/15/22 05:45 MPV 9.2 fL (7.4-10.4) 11/15/22 05:45 Neut % (Auto) 61.8 % 11/09/22 11:00 Lymph % (Auto) 27.1 % 11/09/22 11:00 [place] % (Auto) 9.1 % 11/09/22 11:00 Eos % (Auto) 1.1 % 11/09/22 11:00 Baso % (Auto) 0.4 % 11/09/22 11:00 Neut # (Auto) 4.60 10^3/uL (1.8-7.7) 11/09/22 11:00 Lymph # (Auto) 2.0 10^3/uL (0.8-4.8) 11/09/22 11:00 [place] # (Auto) 0.7 10^3/uL (0.2-0.9) 11/09/22 11:00 Eos # (Auto) 0.1 10^3/uL (0.0-0.8) 11/09/22 11:00 Baso # (Auto) 0.0 10^3/uL (0.0-0.1) 11/09/22 11:00 Nucleated RBC % (auto) 0 % 11/09/22 11:00 Nucleated RBCs # 0.0 /100WBC 11/09/22 11:00 Sodium 137 mmol/L (136-145) 11/09/22 11:00 Potassium 4.1 mmol/L (3.5-5.1) 11/09/22 11:00 Chloride 102 mmol/L (98-107) 11/09/22 11:00 Carbon Dioxide 26 mmol/L (22-29) 11/09/22 11:00 Anion Gap 13.1 (5-19) 11/09/22 11:00 BUN 14 mg/dL (6-20) 11/09/22 11:00 Creatinine 0.6 mg/dL (0.5-0.9) 11/09/22 11:00 GFR Calculation 109.6 mL/min (90-130) 11/09/22 11:00 Glucose 107 mg/dL (65-115) 11/09/22 11:00 Calculated Osmolality 285 mOsm/kg (285-295) 11/09/22 11:00 Calcium 9.5 mg/dL (8.5-10.5) 11/09/22 11:00 Total Bilirubin 0.3 mg/dL (0.15-1.2) 11/09/22 11:00 AST 15 U/L (0-32) 11/09/22 11:00 ALT 15 U/L (0-33) 11/09/22 11:00 Alkaline Phosphatase 52 U/L (35-105) 11/09/22 11:00 Total Protein 7.6 g/dL (6.6-8.7) 11/09/22 11:00 Albumin 4.2 g/dL (3.5-5.2) 11/09/22 11:00 Globulin 3.4 g/dL (1.3-4.6) 11/09/22 11:00 Urine Color Yellow (Yellow) 11/09/22 10:55 Urine Appearance Hazy (CLEAR) A 11/09/22 10:55 Urine pH 5 (5-7) 11/09/22 10:55 Ur Specific [place] 1.010 (1.005-1.030) 11/09/22 10:55 Urine Protein Neg (Negative) 11/09/22 10:55 Urine Glucose (UA) Norm (Normal) 11/09/22 10:55 Urine Ketones Negative (Negative) 11/09/22 10:55 Urine Blood 2+ (Negative) H 11/09/22 10:55 Urine Nitrate Negative (Negative) 11/09/22 10:55 Urine Bilirubin Neg (Negative) 11/09/22 10:55 Urine Urobilinogen Norm mg/dL (Negative) 11/09/22 10:55 Ur Leukocyte Esterase Negative (Negative) 11/09/22 10:55 Urine RBC Rare /hpf (0-2) 11/09/22 10:55 Urine WBC Rare /hpf (0-5) 11/09/22 10:55 Ur Squamous Epith Cells 10-15 /hpf (0-5) H 11/09/22 10:55 Amorphous Sediment Not Reportable 11/09/22 10:55 Urine Bacteria 1+ /hpf (NONE) H 11/09/22 10:55 Blood Type A Positive 11/14/22 06:16 Rho(D) Type Positive 11/14/22 06:16 Antibody Screen Negative 11/14/22 06:16 Vitals Last Vital Signs Temp 97.0 F L 11/14/22 07:54 Pulse 95 11/15/22 05:15 Resp 18 11/15/22 05:15 BP 117/76 11/15/22 05:15 Pulse Ox 96 11/15/22 05:15 O2 Del Method Room Air 11/15/22 05:15 Discharge Plan Discharge Patient Disposition: Home Condition: Stable Prescriptions: New hydrocodone-acetaminophen 5-325 mg tablet 1 tab PO Q4H PRN (Reason: pain) Qty: 10 0RF acetaminophen 325 mg capsule 325 mg PO Q4H PRN (Reason: fever or pain) Qty: 60 0RF Continued albuterol sulfate 2.5 mg /3 mL (0.083 %) solution for nebulization 2.5 mg inhalation Q4H PRN (Reason: shortness of breath or wheezing) miscellaneous medical supply Misc See Rx Instructions miscellaneous .COMPLEX Qty: 1 0RF Rx Instructions: nebulizer machine and new tubing/supplies miscellaneous; montelukast 10 mg tablet 10 mg PO DAILY levocetirizine [Xyzal] 5 mg tablet 5 mg PO BID azelastine-fluticasone 137-50 mcg/spray spray,non-aerosol 1 spray intranasal BID Rx Instructions: administer into each nostril omeprazole 40 mg capsule,delayed release(DR/EC) 40 mg PO BID 30 Days Qty: 60 5RF albuterol sulfate [ProAir HFA] 90 mcg/actuation HFA aerosol inhaler 2 puff INHALATION QID PRN (Reason: shortness of breath or wheezing) 30 Days Qty: 18 5RF acetaminophen 325 mg capsule 325 mg PO Q4H PRN (Reason: fever or pain) Qty: 60 0RF Discharge Orders: Discharge Order (Routine); Ordered 11/15/22 Ordered By: Billy Tran Referrals: Billy Tran MD [Physician] - (Follow up with Dr. Tran on 11/27/22 at 01:30 pm at the [facility].) Discharge Diet: Usual diet Discharge Activity: Limit activity as instructed Patient Instructions: Opioid Safety (DC), Bladder Sling for Women (DC), OB Discharge Report, OB Food/Drug Interaction Guide, Opioid Safety Activity Restrictions/Additional Instructions: 1. Please call [facility] clinic on next working day to make your post-operative appointment in 1 week. 2. Please stay home until you come back to the clinic on first post-hospatilization check up. 3. Please follow instructions on your medications CAREFULLY. 4. If you have abdominal incision, do not cover it unless dressing is necessary because of drainage. OK to shower, but avoid bath. Leave steri-strips until they fall off. If they are still on one week after surgery, you may remove them. 5. If you had vaginal surgery or vaginal repair, Dr. Tran may instruct you to take SITZ bath. 6. Yellow, blood tinged odorous vaginal discharge is usually normal after hysterectomy or vaginal surgeries. 7. No SEXUAL INTERCOURSE, tampons, or douches until you are completely released from the post-operative care. 8. Avoid constipation by eating right and maybe using some Metamucil or Milk of Magnesia. 9. All prescription refills are given during the working hours. Please do no wait till it runs out. Call the clinic at [phone] before your medication runs out. The clinic will get in touch with your doctor to prescribe medications if necessary. 10. Please remain within 40 mile radius from our hospital because emergencies do happen now and then during the post-operative period. 11. If you have stairs at home, take one step at a time slowly and minimize the number of trips. It helps to stay in one floor for the next few days. No lifting except what you can lift by one hand until you are released from the post-operative care. 12. Driving is discouraged until you are well healed. It may be 3-4 weeks before you feel strong enough to drive. You should be able to turn and look through the rear window without pain and you should be able to push the brake pedal very hard without pain before you drive. No fast rules, but SAFETY should be your primary concern. DO NOT drive if you are on sedating medications such as narcotics. 13. Call the clinic (during working hours) to make urgent appointment or go to the Emergency room, if any of the following occurs: i. Vaginal bleeding becomes heavy, more than a period. ii. Incision becomes red and sore, or drains pus. iii. Your TEMPERATURE is over 100.4F or you have chill. iv. IV site becomes red and swollen (a little ``knot?? is usually OK) v. Persistent nausea and vomiting vi. Persistent constipation or diarrhea vii. Rash or allergic reaction to medications. Discharge Attestations ORDER DISPATCHER CHIEF Time Spent in Discharge Care*: greater than 30 min Coding Level of Care Code Acute Code for Chg Fwd Diagnoses
[2022-11-15 13:30] VITALS: BP 111/74; PULSE 92; TEMP 36.7; O2SAT 97
[2022-11-15 13:50] VITALS: BP 111/74; PULSE 92; TEMP 36.7; O2SAT 97
[2022-11-15] MEDS: HYDROcodone-acetaminophen 5-325 mg Tablet PO (13:52)
== END 2022-11-15 13:54 | disposition home or self-care (01) ==
LOC: OBGYN 08:20
PROVIDERS: Admitting Provider Obstetrics & Gynecology; PCP Family Medicine; Visit Provider Obstetrics & Gynecology
PROC: (CPT 57288; principal; 2022-11-14 07:00)
DX: N39.46 Mixed incontinence (principal); K21.9 Gastro-esophageal reflux disease without esophagitis; J45.909 Unspecified asthma, uncomplicated; Z79.899 Other long term (current) drug therapy; Z90.710 Acquired absence of both cervix and uterus
CPT/HCPCS: 57288; 36415; 51798; 80053; 81001; 85025; 85027; 86850; 86900; C1713; G0378; J0690; J1100; J1200; J1885; J2250; J2405; J2704; J3010; J3535; J7030; J7121

== ENCOUNTER → 2023-03-21 09:08 | Outpatient (BNVA) | payer MEDICAID, SELFPAY | PROVIDERS: PCP Family Medicine; Visit Provider Specialist | DX: G58.8 Other specified mononeuropathies (principal); G97.82 Other postprocedural complications and disorders of nervous system | CPT/HCPCS: 99204 ==

== ENCOUNTER 2023-04-10 15:31 | Outpatient (CLI) | payer MEDICAID, SELFPAY ==
--- NOTE | 2023-04-10 15:38 | CT_ITS ---
WS: [id number] CT ABDOMEN AND PELVIS WITH CONTRAST HISTORY: G58.8 - Other specified mononeuropathies TECHNIQUE: Imaging performed of the abdomen and pelvis with IV contrast. Single phase imaging of the abdomen. Coronal and sagittal reformats are submitted. All CT scans at [facility] use at [address] one of these dose optimization techniques: automated exposure control; mA and/or kV adjustment per patient size (includes targeted exams where dose is matched to clinical indication); or iterative re construction. IV CONTRAST: Omnipaque 350; 100 mL IV. Oral contrast: No DLP: 361.56 mGy.cm COMPARISON: 03/09/2018 Lower thorax: Lung bases are clear. Heart is normal size. No hiatal hernia. Liver/biliary system: Normal size with no intrahepatic dilatation. Gallbladder: Normal. No gallstones or wall thickening. No pericholecystic fluid. Pancreas: Normal size pancreas and pancreatic duct. No adjacent inflammation. Spleen: Normal size spleen. No mass or infarct. Adrenal glands: Normal. Right kidney: Normal. Left kidney: Normal. Aorta: Normal. Lymphadenopathy: None. Free fluid: None. GI tract: Unremarkable. Abdominal wall: Unremarkable abdominal wall. No hernia. Pelvis: No free fluid or adenopathy within the pelvis. Prior hysterectomy. Small cystic mass in the R IGHT pelvis is probably a high riding ovary. This is contiguous with the ovarian suspensory ligament. The visualized urinary bladder is only minimally distended. No adjacent fluid collection or mass. Bones: Unremarkable. IMPRESSION: 1. No acute abdominal or pelvic abnormalities identified. 2. No free fluid or adenopathy. 3. Prior hysterectomy. 4. No urinary bladder abnormality identified.
[2023-04-10] MEDS: iohexol 350 mg/mL 500 mL Btl (per mL) IV (15:55)
== END 2023-04-10 15:32 | disposition home or self-care (01) ==
LOC: RAD 15:32
PROVIDERS: PCP Family Medicine; Visit Provider Specialist
DX: G58.8 Other specified mononeuropathies (principal); G97.82 Other postprocedural complications and disorders of nervous system; Z90.710 Acquired absence of both cervix and uterus
CPT/HCPCS: 74177; Q9967

== ENCOUNTER 2023-04-10 16:00 | Emergency (ER) | payer MEDICAID, SELFPAY ==
[2023-04-10 16:21] VITALS: BP 130/85; PULSE 113; RESP 18; TEMP 36.4; O2SAT 98; BMI 24.7
[2023-04-10 16:56] LABS: Basophils % 0.3 %; Eosinophils # 0.1 10^3/uL (0.0-0.8); Eosinophils % 1.5 %; Hematocrit 42.3 % (36-47); Lymphocytes % 32.8 %; Mean Corpuscular HGB Conc 32.2 g/dL (30-55); Mean Corpuscular Hemoglobin 27.1 pg (27-33); Mean Corpuscular Volume 84.4 fl (85-98); Mean Platelet Volume 9.1 fL (7.4-10.4); Monocytes # 0.6 10^3/uL (0.2-0.9); Monocytes % 9.5 %; Neutrophils # 3.34 10^3/uL (1.8-7.7); Neutrophils % 55.4 %; Nucleated Red Blood Cells % 0 %; Platelet Count 446 10^3/cmm (157-399); Red Blood Count 5.01 10^6/uL (3.85-5.65); Red Cell Distribution Width 13.2 % (12.1-15.1); White Blood Count 6.03 10^3/uL (3.29-11.43)
[2023-04-10 17:05] LABS: Alanine Aminotransferase 20 U/L (0-33); Albumin Level 4.3 g/dL (3.5-5.2); Alkaline Phosphatase 61 U/L (35-105); Anion Gap 14.7 (5-19); Aspartate Amino Transferase 21 U/L (0-32); Blood Urea Nitrogen 7 mg/dL (6-20); Calcium 9.1 mg/dL (8.5-10.5); Carbon Dioxide 27 mmol/L (22-29); Chloride 99 mmol/L (98-107); Globulin 3.5 g/dL (1.3-4.6); Glomerular Filtration Rate 91.3 mL/min (90-130); Glucose 120 mg/dL (65-115); Lipase 30 U/L (13-60); Osmolality Calculated 283 mOsm/kg (285-295); Potassium 3.7 mmol/L (3.5-5.1); Sodium 137 mmol/L (136-145); Total Bilirubin 0.2 mg/dL (0.15-1.2); Total Protein 7.8 g/dL (6.6-8.7)
[2023-04-10 17:20] LABS: HCG, Serum Qual Negative (Negative)
--- NOTE | 2023-04-10 17:25 | ED_ITS ---
HPI - Abdominal Pain 2 General: Chief Complaint: Abdominal Pain Stated Complaint: abd pains Time Seen by Provider: 04/10/23 17:24 History of Present Illness: 42-year-old female comes in today for co mplaints of left flank pain radiating around to her abdomen. Patient appears nontoxic. Patient reports gallbladder surgery, hysterectomy, and bladder tie up. Patient denies any history of renal calculi. Patient reports no fever. Patient has a history of asthma and reflux. Review of Systems 2 General: Reports: 10 or more systems reviewed and unremarkable except in HPI and below : Reports: flank pain PFSH ED 2 PFSH: Medical History No pertinent past medical history neghx: htn,dm,thyroid,dvt/pe PCP: [facility], 1928–1983 in [facility] -- Dr. Yu Insomnia Menometrorrhagia Asthma GERD (gastroesophageal reflux disease) Seasonal allergic rhinitis Surgical History S/P bladder repair (~11/14/22) Single incision mid urethral sling; coloplast altis sling performed by Marc at [facility], for mixed urinary incontinence Hx of hysterectomy (~12/21/21) TVH with bilateral salpingectomy performed by Dr. Tran at [facility] for chronic pelvic pain and AUB H/O tubal ligation (09/22/07) Performed by Dr. Martinez at [facility] in [place], [place] Family History Father Heart disease Family/Other Breast cancer maternal aunt, 30's Grandmother Hypertension maternal Denies family history of Colon cancer Ovarian cancer Diabetes Clotting disorder Hyperlipidemia Anesthesia complication Bleeding disorder Cancer Uterine cancer Thyroid disease Stroke Social History Smoking and tobacco/nicotine status: never used tobacco/nicotine Alcohol intake: never Substance/Drug Use: never Female Reproductive History: Spontaneous abortions: No Physical Exam 2 Const: COMMON NORMALS: alert HENMT: COMMON NORMALS: normocephalic HEAD & SCALP: normocephalic Neck/C-Spine: COMMON NORMALS: full ROM Resp: COMMON NORMALS: normal respiratory effort Cardio: COMMON NORMALS: regular rate RATE: regular rate GI: COMMON NORMALS: Soft to palpation PALPATION: Yes Soft to palpation : COMMON NORMALS: Yes no CVA tenderness BLADDER/KIDNEY EXAM: Yes no CVA tenderness Back/Pelvis: COMMON NORMALS: no CVA tenderness LUMBAR SPINE/LOWER BACK: Yes paraspinal muscle tenderness Lumbar paraspinal muscle tenderness: left Extremity: COMMON NORMALS: normal to inspection Neuro: SENSORIUM/ORIENTATION: Yes alert Skin: COMMON NORMALS: turgor normal GENERAL SKIN EXAM: turgor normal Course 2 Vital Signs: Vital signs: Vital Signs Temperature 97.6 F 04/10/23 16:21 Pulse Rate 96 04/10/23 17:30 Respiratory Rate 14 04/10/23 17:30 Blood Pressure 132/93 04/10/23 17:30 Pulse Oximetry 96 04/10/23 17:30 Oxygen Delivery Me thod Room Air 04/10/23 16:21 MDM - Abdominal Pain Medical Decision Making 42-year-old female comes in today with complaints of left flank pain. On exam patient appears nontoxic. Patient reports pain in her left flank radiating down to her lower abdomen. On exam we have some left lower quadrant abdominal tenderness, left flank pain to palpation. No CVA tenderness. Respirations are even. Lungs clear to auscultation. Abdomen soft nontender. Differential diagnosis includes but not limited to diverticulitis, renal colic, urinary tract infection, muscle strain. CBC showed a white count of 6000, CMP was unremarkable, urinalysis had some nitrates. CT of the abdomen and pelvis noted no renal calculi or other significant abnormalities. Exam cannot suggest more of a musculoskeletal pain but the urine nitrates may suggest a mild urinary tract infection. Patient was started on some Macrobid for the next 5 days to cover for urinary tract infection. Patient was given some methocarbamol to help with back pain. Recommend follow-up with primary care for further instructions. Patient reported understanding agreed to plan. Lab Data 04/10/23 16:21 04/10/23 16:21 Labs/Radiology: Radiology Impressions Abdomen/Pelvis CT 04/10/23 17:29 IMPRESSION: No acute findings. 2.7 cm soft tissue density structure in the left lower quadrant abdomen may represent the left adnexa in this patient status post hysterectomy. Please correlate with surgical history. Laboratory Results WBC 6.03 10^3/uL (3.29-11.43) 04/10/23 16:21 RBC 5.01 10^6/uL (3.85-5.65) 04/10/23 16:21 Hgb 13.60 g/dL (11.27-16.99) 04/10/23 16:21 Hct 42.3 % (36-47) 04/10/23 16:21 MCV 84.4 fl (85-98) L 04/10/23 16:21 MCH 27.1 pg (27-33) 04/10/23 16:21 MCHC 32.2 g/dL (30-55) 04/10/23 16:21 RDW 13.2 % (12.1-15.1) 04/10/23 16:21 Plt Count 446 10^3/cmm (157-399) H 04/10/23 16:21 MPV 9.1 fL (7.4-10.4) 04/10/23 16:21 Neut % (Auto) 55.4 % 04/10/23 16:21 Lymph % (Auto) 32.8 % 04/10/23 16:21 [place]ven % (Auto) 9.5 % 04/10/23 16:21 Eos % (Auto) 1.5 % 04/10/23 16:21 Baso % (Auto) 0.3 % 04/10/23 16:21 Neut # (Auto) 3.34 10^3/uL (1.8-7.7) 04/10/23 16:21 Lymph # (Auto) 2.0 10^3/uL (0.8-4.8) 04/10/23 16:21 Craven # (Auto) 0.6 10^3/uL (0.2-0.9) 04/10/23 16:21 Eos # (Auto) 0.1 10^3/uL (0.0-0.8) 04/10/23 16:21 Baso # (Auto) 0.0 10^3/uL (0.0-0.1) 04/10/23 16:21 Nucleated RBC % (auto) 0 % 04/10/23 16:21 Nucleated RBCs # 0.0 /100WBC 04/10/23 16:21 Sodium 137 mmol/L (136-145) 04/10/23 16:21 Potassium 3.7 mmol/L (3.5-5.1) 04/10/23 16:21 Chloride 99 mmol/L (98-107) 04/10/23 16:21 Carbon Dioxide 27 mmol/L (22-29) 04/10/23 16:21 Anion Gap 14.7 (5-19) 04/10/23 16:21 BUN 7 mg/dL (6-20) 04/10/23 16:21 Creatinine 0.7 mg/dL (0.5-0.9) 04/10/23 16:21 GFR Calculation 91.3 mL/min (90-130) 04/10/23 16:21 Glucose 120 mg/dL (65-115) H 04/10/23 16:21 Calculated Osmolality 283 mOsm/kg (285-295) L 04/10/23 16:21 Calcium 9.1 mg/dL (8.5-10.5) 04/10/23 16:21 Total Bilirubin 0.2 mg/dL (0.15-1.2) 04/10/23 16:21 AST 21 U/L (0-32) 04/10/23 16:21 ALT 20 U/L (0-33) 04/10/23 16:21 Alkaline Phosphatase 61 U/L (35-105) 04/10/23 16:21 Total Protein 7.8 g/dL (6.6-8.7) 04/10/23 16:21 Albumin 4.3 g/dL (3.5-5.2) 04/10/23 16:21 Globulin 3.5 g/dL (1.3-4.6) 04/10/23 16:21 Lipase 30 U/L (13-60) 04/10/23 16:21 HCG, Qual Negative (Negative) 04/10/23 16:21 Urine Color Yellow (Yellow) 04/10/23 17:38 Urine Appearance Clear (CLEAR) 04/10/23 17:38 Urine pH 6.5 (5-7) 04/10/23 17:38 Ur Specific [place] 1.000 (1.005-1.030) L 04/10/23 17:38 Urine Protein 1+ (Negative) H 04/10/23 17:38 Urine Glucose (UA) Norm (Normal) 04/10/23 17:38 Urine Ketones Negative (Negative) 04/10/23 17:38 Urine Blood 2+ (Negative) H 04/10/23 17:38 Urine Nitrate Positive (Negative) H 04/10/23 17:38 Urine Bilirubin Neg (Negative) 04/10/23 17:38 Urine Urobilinogen Norm mg/dL (Negative) 04/10/23 17:38 Ur Leukocyte Esterase Negative (Negative) 04/10/23 17:38 Urine RBC 0-4 /hpf (0-2) H 04/10/23 17:38 Urine WBC 0-4 /hpf (0-5) H 04/10/23 17:38 Ur Squamous Epith Cells 0-4 /hpf (0-5) H 04/10/23 17:38 Amorphous Sediment Not Reportable 04/10/23 17:38 Urine Bacteria Trace /hpf (NONE) 04/10/23 17:38 Urine Mucus None /hpf 04/10/23 17:38 All radiology interpretation(s) finalized by discharge Discharge Plan Discharge Patient Disposition: Home Clinical Impression: UTI (urinary tract infection) due to Enterococcus Lumbar back sprain Qualifiers: Encounter type: initial encounter Qualified Code(s): S33.5XXA - Sprain of ligaments of lumbar spine, initial encounter Condition: Stable Prescriptions: New nitrofurantoin monohyd/m-cryst 100 mg capsule 100 mg PO BID 5 Days Qty: 10 0RF Rx Instructions: must administer with a meal/food methocarbamol 750 mg tablet 750 mg PO TID PRN (Reason: back pain) Qty: 15 0RF No Action albuterol sulfate 2.5 mg /3 mL (0.083 %) solution for nebulization 2.5 mg inhalation Q4H PRN (Reason: shortness of breath or wheezing) miscellaneous medical supply Misc See Rx Instructions miscellaneous .COMPLEX Qty: 1 0RF Rx Instructions: nebulizer machine and new tubing/supplies miscellaneous; omeprazole 40 mg capsule,delayed release(DR/EC) 40 mg PO BID 30 Days Qty: 60 5RF albuterol sulfate [ProAir HFA] 90 mcg/actuation HFA aerosol inhaler 2 puff INHALATION QID PRN (Reason: shortness of breath or wheezing) 30 Days Qty: 18 5RF levocetirizine [Xyzal] 5 mg tablet 5 mg PO DAILY gabapentin [Neurontin] 300 mg capsule 300 mg PO Q8H Qty: 90 3RF Discharge Orders: Discharge ED (Routine); Ordered 04/10/23 Ordered By: Ned Crowder Referrals: Aldo Aranda MD [Primary Care Provider] - Discharge Diet: Usual diet Discharge Activity: Increase activity as tolerated Patient Instructions: Back Pain (ED) Activity Restrictions/Additional Instructions: Activity as tolerated. Gentle stretching and range of motion exercises. Drink plenty of water and fluids. Take antibiotic as directed. Follow-up with primary care for further instructions. Use acetaminophen and ibuprofen as needed for pain. Use methocarbamol for further pain relief of the back and muscle spasms. Return to ER for new concerns. Coding Level of Care Code ED Human Resources Officer for Janel Patel
--- NOTE | 2023-04-10 17:29 | CTR_ITS ---
PROCEDURE INFORMATION: Exam: CT Abdomen And Pelvis Without Contrast Exam date and time: 04/10/2023 5:41 PM Age: 42 years old Clinical indication: Abdominal pain; Localized; Left; Prior surgery; Surgery date: 6+ months; Surgery type: Hyst; Additional info: Left flank pain TECHNIQUE: Imaging protocol: Computed tomography of the abdomen and pelvis without contrast. Radiation optimization: All CT scans at this facility use at least one of these dose optimization techniques: automated exposure control; mA and/or kV adjustment per patient size (includes targeted exams where dose is matched to clinical indication); or iterative reconstruction. COMPARISON: CT abdomen pelvis w con* [id number] 04/10/2023 3:48 PM RADIATION DOSE METRICS: Total DLP (mGy-cm): 502 FINDINGS: Liver: Normal. No mass. Gallbladder and bile ducts: Normal. No calcified stones. No ductal dilation. Pancreas: Normal. No ductal dilation. Spleen: Normal. No splenomegaly. Adrenal glands: Normal. No mass. Kidneys and ureters: Normal. No hydronephrosis. Stomach and bowel: Unremarkable. No obstruction. No mucosal thickening. Appendix: A normal appendix is identified. Intraperitoneal space: Unremarkable. No free air. No significant fluid collection. Vasculature: Unremarkable. No abdominal aortic aneurysm. Lymph nodes: Unremarkable. No enlarged lymph nodes. Urinary bladder: Unremarkable as visualized. Reproductive: The uterus is not visualized, consistent with hysterectomy. Bones/joints: Unremarkable. No acute fracture. Soft tissues: Soft tissue density structure in the left lower quadrant abdomen measures 2.7 cm in the transverse dimension and may represent the left adnexa. CT/CT kidney stone [id number] IMPRESSION: No acute findings. 2.7 cm soft tissue density structure in the left lower quadrant abdomen may represent the left adnexa in this patient status post hysterectomy. Please correlate with surgical history.
[2023-04-10 17:30] VITALS: BP 132/93; PULSE 96; RESP 14; O2SAT 96
[2023-04-10 18:13] LABS: Add Urine Microscopic? YES; Bilirubin Urine Neg (Negative); Blood Urine 2+ (Negative); Glucose Urine UA Norm (Normal); Ketones Urine Negative (Negative); Leukocyte Esterase Urine Negative (Negative); Nitrate Urine Positive (Negative); Protein Urine 1+ (Negative); Urine Appearance Clear (CLEAR); Urine Color Yellow (Yellow); Urobilinogen Urine Norm (Negative); pH Urine 6.5 (5-7)
[2023-04-10 18:16] LABS: RBC Urine 0-4 /hpf (0-2)
[2023-04-10 18:17] LABS: Add Urine Culture? No; Bacteria Urine TRACE /hpf; Squamous Epithelial Cell Urine 0-4 /hpf (0-5); WBC Urine 0-4 /hpf (0-5)
[2023-04-10] MEDS: nitrofurantoin SR (BID) 100 mg Capsule PO (18:22)
[2023-04-10] MEDS: HYDROcodone-acetaminophen 5-325 mg Tablet 1 TAB PO (18:30)
[2023-04-10 18:34] VITALS: BP 132/93; PULSE 96; RESP 14; TEMP 36.4; O2SAT 96
== END 2023-04-10 18:35 | disposition home or self-care (01) ==
PROVIDERS: Emergency Provider Nurse Practitioner Family; PCP Family Medicine
DX: N39.0 Urinary tract infection, site not specified (principal); B95.2 Enterococcus as the cause of diseases classified elsewhere; S33.5XXA Sprain of ligaments of lumbar spine, initial encounter; X58.XXXA Exposure to other specified factors, initial encounter
CPT/HCPCS: 36415; 74176; 80053; 81001; 83690; 84703; 85025; 99284

== ENCOUNTER 2023-06-21 13:34 | Emergency (ER) | payer MEDICAID, SELFPAY ==
--- NOTE | 2023-06-21 12:41 | ECG_ITS ---
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 Measurements Intervals [place] Rate: 102 P: 51 ND: 134 QRS: 43 QRSD: 86 T: 8 QT: 322 QTc: 420 Interpretive Statements SINUS TACHYCARDIA LOW QRS VOLTAGE IN PRECORDIAL LEADS [QRS DEFLECTION < 1.0 mV IN CHEST LEADS] NONSPECIFIC T-WAVE ABNORMALITY ABNORMAL RHYTHM ECG Compared to ECG 03/29/2018 15:50:53 Low QRS voltage now present Sinus rhythm no longer present T-wave abnormality still present Electronically Signed On 06-21-2023 22:02:24 CDT by Jesus Brown M.D. [email or web address]
[2023-06-21 13:37] VITALS: BP 124/81; PULSE 102; RESP 16; TEMP 36.8; O2SAT 97
--- NOTE | 2023-06-21 13:39 | XRR_ITS ---
PROCEDURE INFORMATION: Exam: XR Chest Exam date and time: 06/21/2023 2:04 PM Age: 42 years old Clinical indication: Pain; Angina pectoris; Additional info: Cp TECHNIQUE: Imaging protocol: Radiologic exam of the chest. Views: 1 view. COMPARISON: CR XR chest 2V* [id number] 03/29/2018 4:03 PM FINDINGS: Lungs: Unremarkable. No consolidation or mass. Pleural spaces: Unremarkable. No pleural effusion. No pneumothorax. Heart/Mediastinum: Unremarkable. No cardiomegaly. Bones/joints: Unremarkable. XR/XR chest 1V portable [id number] IMPRESSION: No acute findings.
[2023-06-21 13:44] VITALS: BP 124/81; PULSE 98; RESP 20; O2SAT 98
--- NOTE | 2023-06-21 13:49 | ED_ITS ---
HPI - Chest Pain 2 General: Chief Complaint: Chest Pain Stated Complaint: chest pain Time Seen by Provider: 06/21/23 13:38 Source: patient Mode of arrival: ambulatory Limitations: no limitations History of Present Illness: 42-year-old female states she been havin g a sharp chest pain the last 2 days. States pain to the center of her chest seem to be worse with movement and palpation denies any pain currently she denies any shortness of breath denies any diaphoresis denies any vomiting or diarrhea or cough Associated symptoms: Deny abdominal pain, dyspnea, fever(s), nausea or vomiting Review of Systems 2 Const: Denies: fever(s), chills, body aches or change in appetite ENMT: Denies: throat pain or dental pain Card: Reports: chest pain Resp: Denies: dyspnea GI: Denies: abdominal pain, nausea, vomiting or diarrhea Musc: Denies: neck pain or back pain Skin/Breast: Denies: rash Neuro: Denies: headache(s) PFSH ED 2 PFSH: Medical History No pertinent past medical history neghx: htn,dm,thyroid,dvt/pe PCP: [facility] in [facility] -- Dr. Yu Insomnia Menometrorrhagia Asthma GERD (gastroesophageal reflux disease) Seasonal allergic rhinitis Surgical History S/P bladder repair (~11/14/22) Single incision mid urethral sling; coloplast altis sling performed by Marc at [facility], for mixed urinary incontinence Hx of hysterectomy (~12/21/21) TVH with bilateral salpingectomy performed by Dr. Tran at [facility] for chronic pelvic pain and AUB H/O tubal ligation (09/22/07) Per[place] Dr. Martinez at [facility] [place], [place] Family History Father Heart disease Family/Other Breast cancer maternal aunt, 30's Grandmother Hypertension maternal Denies family history of Colon cancer Ovarian cancer Diabetes Clotting disorder Hyperlipidemia Anesthesia complication Bleeding disorder Cancer Uterine cancer Thyroid disease Stroke Social History Smoking and tobacco/nicotine status: never used tobacco/nicotine Alcohol intake: never Substance/Drug Use: never Female Reproductive History: Spontaneous abortions: No Physical Exam 2 Const: COMMON NORMALS: no acute distress, patient oriented x3 and healthy appearing HENMT: COMMON NORMALS: normocephalic and atraumatic HEAD & SCALP: n ormocephalic and atraumatic Neck/C-Spine: COMMON NORMALS: full ROM and supple Chest: COMMONS NORMALS: normal inspection of the chest OTHER: point tender in center of chest Resp: COMMON NORMALS: normal respiratory effort, No retractions, No use of accessory muscles and clear to auscultation bilaterally AUSCULTATION: clear to auscultation bilaterally Cardio: COMMON NORMALS: regular rate, regular rhythm and No murmurs present (Cardio) RATE: regular rate RHYTHM: regular rhythm GI: COMMON NORMALS: Normal to inspection, nondistended, normoactive bowel sounds present, Soft to palpation, non-tender and no masses PALPATION: Yes Soft to palpation Extremity: COMMON NORMALS: normal to inspection and full ROM Neuro: COMMON NORMALS: patient oriented x3, moves all extremities and no focal motor deficits Psych: COMMON NORMALS: mental status grossly normal, Normal thought process present and cooperative THOUGHT PROCESS: Normal thought process present Skin: COMMON NORMALS: no rashes or lesions noted and no wounds GENERAL SKIN EXAM: no rashes or lesions noted Course 2 Vital Signs: Vital signs: Vital Signs Temperature 98.3 F 06/21/23 13:37 Pulse Rate 95 06/21/23 14:14 Respiratory Rate 13 06/21/23 14:14 Blood Pressure 121/81 06/21/23 14:14 Pulse Oximetry 97 06/21/23 14:14 Oxygen Delivery Me thod Room Air 06/21/23 14:14 MDM - Chest Pain Medical Decision Making Patient presents here with chest pains likely chest wall pain she is point tender in the center of her chest her troponin here is normal her pains been going on for days do not need to get a 2-hour troponin she has no signs of ACS no signs of dissection or pulm embolism we will place her on Naprosyn she is follow-up with PCP and return if worsening. Medical Records I reviewed the patient's medical records. Lab Data I reviewed the patient's lab results. 06/21/23 13:58 06/21/23 13:58 Radiology Impressions Chest X-Ray 06/21/23 13:39 IMPRESSION: No acute findings. Laboratory Results WBC 6.29 10^3/uL (3.29-11.43) 06/21/23 13:58 RBC 4.60 10^6/uL (3.85-5.65) 06/21/23 13:58 Hgb 12.50 g/dL (11.27-16.99) 06/21/23 13:58 Hct 39.3 % (36-47) 06/21/23 13:58 MCV 85.4 fl (85-98) 06/21/23 13:58 MCH 27.2 pg (27-33) 06/21/23 13:58 MCHC 31.8 g/dL (30-55) 06/21/23 13:58 RDW 12.9 % (12.1-15.1) 06/21/23 13:58 Plt Count 348 10^3/cmm (157-399) 06/21/23 13:58 MPV 9.2 fL (7.4-10.4) 06/21/23 13:58 Neut % (Auto) 65.2 % 06/21/23 13:58 Lymph % (Auto) 25.3 % 06/21/23 13:58 M[place]racken % (Auto) 8.1 % 06/21/23 13:58 Eos % (Auto) 0.6 % 06/21/23 13:58 Baso % (Auto) 0.5 % 06/21/23 13:58 Neut # (Auto) 4.10 10^3/uL (1.8-7.7) 06/21/23 13:58 Lymph # (Auto) 1.6 10^3/uL (0.8-4.8) 06/21/23 13:58 M[place]racken # (Auto) 0.5 10^3/uL (0.2-0.9) 06/21/23 13:58 Eos # (Auto) 0.0 10^3/uL (0.0-0.8) 06/21/23 13:58 Baso # (Auto) 0.0 10^3/uL (0.0-0.1) 06/21/23 13:58 Nucleated RBC % (auto) 0 % 06/21/23 13:58 Nucleated RBCs # 0.0 /100WBC 06/21/23 13:58 PT 13.20 SECONDS (12.1-14.9) 06/21/23 13:58 INR 0.98 (0.8-1.2) 06/21/23 13:58 Sodium 140 mmol/L (136-145) 06/21/23 13:58 Potassium 4.1 mmol/L (3.5-5.1) 06/21/23 13:58 Chloride 106 mmol/L (98-107) 06/21/23 13:58 Carbon Dioxide 24 mmol/L (22-29) 06/21/23 13:58 Anion Gap 14.1 (5-19) 06/21/23 13:58 BUN 9 mg/dL (6-20) 06/21/23 13:58 Creatinine 0.7 mg/dL (0.5-0.9) 06/21/23 13:58 GFR Calculation 91.3 mL/min (90-130) 06/21/23 13:58 Glucose 90 mg/dL (65-115) 06/21/23 13:58 Calculated Osmolality 288 mOsm/kg (285-295) 06/21/23 13:58 Calcium 8.9 mg/dL (8.5-10.5) 06/21/23 13:58 Total Bilirubin 0.3 mg/dL (0.15-1.2) 06/21/23 13:58 AST 11 U/L (0-32) 06/21/23 13:58 ALT 12 U/L (0-33) 06/21/23 13:58 Alkaline Phosphatase 50 U/L (35-105) 06/21/23 13:58 Troponin T Baseline < 6 ng/L (0-10) 06/21/23 13:58 Total Protein 7.0 g/dL (6.6-8.7) 06/21/23 13:58 Albumin 4.1 g/dL (3.5-5.2) 06/21/23 13:58 Globulin 2.9 g/dL (1.3-4.6) 06/21/23 13:58 Lipase 33 U/L (13-60) 06/21/23 13:58 All radiology interpretation(s) finalized by discharge EKG Data EKG 1: I personally reviewed and interpreted this EKG as follows: EKG interpretation date: 06/21/23 EKG interpretation time: 12:41 Interpretation: sinus tach hr [address] or t wave abnormalities qrs 86 qtc 381 Discharge Plan Discharge Patient Disposition: Home Clinical Impression: Chest pain Condition: Stable Prescriptions: New Naprosyn 500 mg tablet 500 mg PO BID PRN (Reason: pain) Qty: 20 0RF No Action albuterol sulfate 2.5 mg /3 mL (0.083 %) solution for nebulization 2.5 mg inhalation Q4H PRN (Reason: shortness of breath or wheezing) levocetirizine [Xyzal] 5 mg tablet 5 mg PO DAILY triamcinolone acetonide 0.1 % cream 1 applic topical BID fluticasone propionate 44 mcg/actuation HFA aerosol inhaler 2 puff INHALATION BID fluticasone propionate 50 mcg/actuation spray,suspension 2 spray INTRANASAL DAILY Discharge Orders: Discharge ED (Routine); Ordered 06/21/23 Ordered By: Sandra Holm Referrals: Aldo Aranda MD [Primary Care Provider] - 4-7 days Discharge Diet: Advance as tolerated Discharge Activity: Resume usual activity Patient Instructions: Chest Wall Pain (ED) Coding Level of Care Code ED Architectural Job Captain for Janel Patel
[2023-06-21 14:08] LABS: Basophils % 0.5 %; Eosinophils % 0.6 %; Hematocrit 39.3 % (36-47); Lymphocytes # 1.6 10^3/uL (0.8-4.8); Lymphocytes % 25.3 %; Mean Corpuscular HGB Conc 31.8 g/dL (30-55); Mean Corpuscular Hemoglobin 27.2 pg (27-33); Mean Corpuscular Volume 85.4 fl (85-98); Mean Platelet Volume 9.2 fL (7.4-10.4); Monocytes # 0.5 10^3/uL (0.2-0.9); Monocytes % 8.1 %; Neutrophils % 65.2 %; Nucleated Red Blood Cells % 0 %; Platelet Count 348 10^3/cmm (157-399); Red Cell Distribution Width 12.9 % (12.1-15.1); White Blood Count 6.29 10^3/uL (3.29-11.43)
[2023-06-21 14:14] VITALS: BP 121/81; PULSE 95; RESP 13; O2SAT 97
[2023-06-21 14:21] LABS: Troponin(5th) Baseline < 6 ng/L (0-10)
[2023-06-21 14:22] LABS: Alanine Aminotransferase 12 U/L (0-33); Albumin Level 4.1 g/dL (3.5-5.2); Alkaline Phosphatase 50 U/L (35-105); Anion Gap 14.1 (5-19); Aspartate Amino Transferase 11 U/L (0-32); Blood Urea Nitrogen 9 mg/dL (6-20); Calcium 8.9 mg/dL (8.5-10.5); Carbon Dioxide 24 mmol/L (22-29); Chloride 106 mmol/L (98-107); Creatinine Clr Calc Pharmacy 94.4713; Globulin 2.9 g/dL (1.3-4.6); Glomerular Filtration Rate 91.3 mL/min (90-130); Glucose 90 mg/dL (65-115); Lipase 33 U/L (13-60); Osmolality Calculated 288 mOsm/kg (285-295); Potassium 4.1 mmol/L (3.5-5.1); Sodium 140 mmol/L (136-145); Total Bilirubin 0.3 mg/dL (0.15-1.2)
[2023-06-21 14:29] LABS: INR 0.98 (0.8-1.2)
[2023-06-21 14:44] VITALS: BP 121/81; PULSE 96; RESP 16; O2SAT 97
== END 2023-06-21 14:45 | disposition home or self-care (01) ==
PROVIDERS: Emergency Provider Emergency Medicine; PCP Family Medicine
DX: R07.9 Chest pain, unspecified (principal)
CPT/HCPCS: 71045; 80053; 83690; 84484; 85025; 85610; 93005; 99285

== ENCOUNTER 2023-10-22 10:57 | Outpatient (CLI) | payer MEDICAID, SELFPAY ==
--- NOTE | 2023-10-22 11:03 | MR_ITS ---
WS: [id number] MRI RIGHT SHOULDER HISTORY: Pain COMPARISON: 05/16/2020 TECHNIQUE: Multiplanar sequences of the shoulder joint are submitted. Mild AC joint arthropathy. There is a small amount of fluid in the AC joint. Small osteophytes from t he distal clavicle. Small amount of fluid in the subacromial bursa. Similar findings as compared to . Moderate subacromial impingement with mild progression since 05/16/2020 by an osteophyte. Oste ophyte measures 8 x 5 mm. No os acromion. Biceps tendon in the bicipital groove. There is increased T 2 signal within the central biceps tendon which is new consistent with a focal split tear. No rotator cuff muscle atrophy or edema. No tear is identified within the rotator cuff. No labral tea r or abnormality. MR/MR shoulder RT wo con* [id number] IMPRESSION: 1. Mild AC joint arthropathy similar to the prior study. 2. Moderate subacromial impingement. Enlarging subacromial osteophyte measurin g 8 x 5 mm impinging upon the distal supraspinatus tendon. 3. No rotator cuff tear. 4. No labral tear. 5. New focal split tear biceps tendon in the bicipital groove.
== END 2023-10-22 10:58 | disposition home or self-care (01) ==
LOC: RAD 10:58
PROVIDERS: PCP Family Medicine; Visit Provider Physician Assistant
DX: M12.811 Other specific arthropathies, not elsewhere classified, right shoulder (principal); M25.711 Osteophyte, right shoulder; M25.811 Other specified joint disorders, right shoulder; S46.211A Strain of muscle, fascia and tendon of other parts of biceps, right arm, initial encounter; X58.XXXA Exposure to other specified factors, initial encounter
CPT/HCPCS: 73221

== ENCOUNTER → 2023-11-26 10:06 | Outpatient (BNVA) | payer MEDICAID, SELFPAY | PROVIDERS: PCP Family Medicine; Visit Provider Student in an Organized Health Care Education/Training Program | DX: M25.511 Pain in right shoulder (principal); M75.41 Impingement syndrome of right shoulder | CPT/HCPCS: 20610; 73030; 99204; J3301 ==

== ENCOUNTER 2023-12-10 10:03 | Outpatient (CLI) | payer MEDICAID, SELFPAY ==
--- NOTE | 2023-12-10 10:07 | MM_ITS ---
WS: [id number] BILATERAL 3D TOMOSYNTHESIS DIGITAL SCREENING MAMMOGRAPHY WITH CAD CLINICAL INFORMATION: SCREENING HISTORY: Screening mammogram. No current complaints. COMPARISON: 2022 TECHNIQUE: Bilateral CC and MLO views. FINDINGS: The breasts are composed of heterogeneous fibroglandular density tissue, which can limit the detectio n of small underlying mass lesions. No suspicious mass, asymmetry, calcifications, or architectural d istortion. No evidence of malignancy. MM/[place] [id number] IMPRESSION: DENSITY:The breasts are heterogeneously dense, which may obscure small masses. BI-RADS: 1 - Negative FOLLOW UP: 1 Year Follow-up Recommend return to annual screening mammography.
== END 2023-12-10 10:04 | disposition home or self-care (01) ==
LOC: RAD 10:04
PROVIDERS: PCP Family Medicine; Visit Provider Family Medicine
DX: Z12.31 Encounter for screening mammogram for malignant neoplasm of breast (principal); R92.333 Mammographic heterogeneous density, bilateral breasts
CPT/HCPCS: 77063; 77067

== ENCOUNTER → 2024-02-04 09:45 | Outpatient (BNVA) | payer MEDICAID, SELFPAY | PROVIDERS: PCP Family Medicine; Visit Provider Student in an Organized Health Care Education/Training Program | DX: M75.41 Impingement syndrome of right shoulder (principal); M19.011 Primary osteoarthritis, right shoulder; S46.219A Strain of muscle, fascia and tendon of other parts of biceps, unspecified arm, initial encounter; X58.XXXA Exposure to other specified factors, initial encounter | CPT/HCPCS: 99214 ==

== ENCOUNTER 2024-03-18 08:04 | Day surgery (SDC) | payer MEDICAID, SELFPAY ==
[2024-03-18] VITALS (10 sets, daily range): BP systolic 100–166; BP diastolic 72–99; PULSE 89–99; RESP 16–18; TEMP 36.2; O2SAT 93–100; BMI 20.3
--- NOTE | 2024-03-18 08:25 | P.ANESASSM_ITS ---
Pre-Anesthetic Assessment Height/Weight: Height 5 ft 3 in Preop Diagnosis: AC joint arthritis Operation Date: 03/18/24 09:45 Proposed Procedures p Shoulder Arthroscopy(Right) - Jeffery Lorenzo, DO s Subacromial Decompression(Right) - Jeffery Lorenzo, DO s AC Joint Resection(Right) - Jeffery [place], DO s Bicep Tenodesis(Right) - Jeffery [place], DO Was Beta Mariam taken within 24 hours: N/A Was Clonidine taken within 24 hours: N/A Social No alcohol and No tobacco Exam alert, oriented x 3, clear to auscultation bilaterally and regular rate & rhythm Airway Submandibular: within normal limits Cervical ROM: within normal limits Mallampati: Class II Dentition: full Anesthetic Plan ASA status: 2 Anesthesia: General and Regional (specify below) Other: History of PONV, scopolamine patch applied NPO since yesterday History of GERD on omeprazole Asthma, controlled with inhalers Prior EKG showing sinus tachycardia METs greater than 4 Plan for general anesthesia with preop nerve block Medications/Allergies Home Medications Medication Instructions Recorded Confirmed Last Taken Type albuterol sulfate 2.5 mg/3 mL 2.5 mg inhalation Q4H PRN 05/31/20 03/10/24 11/13/22 History (0.083 %) solution for nebulization shortness of breath or wheezing meloxicam 7.5 mg tablet 7.5 mg PO DAILY 02/04/24 03/10/24 03/10/24 History omeprazole 20 mg capsule,delayed 20 mg PO DAILY 02/04/24 03/10/24 03/10/24 History release vit 168-iron 27 mg-folic 1 cap PO DAILY 02/04/24 03/10/24 03/10/24 History acid 800 mcg-omega3 235 mg capsule (One-A-Day -1) cetirizine 10 mg tablet 10 mg PO BEDTIME 03/10/24 03/10/24 03/10/24 History loratadine 10 mg tablet 10 mg PO DAILY 03/10/24 03/10/24 03/10/24 History Allergies Allergy/AdvReac Type Severity Reaction Status Date / Time aspirin Allergy ADR-Nausea Verified 02/04/24 09:57 [facility] Anesthesia Medical History No pertinent past medical history neghx: htn,dm,thyroid,dvt/pe PCP: [facility] in [place] -- Dr. Aimee Ballesteros Menometrorrhagia Asthma GERD (gastroesophageal reflux disease) Seasonal allergic rhinitis Surgical History S/P bladder repair (~11/14/22) Single incision mid urethral sling; coloplast altis sling performed by Marc at [facility], for mixed urinary incontinence Hx of hysterectomy (~12/21/21) TVH with bilateral salpingectomy performed by Dr. Tran at [facility] for chronic pelvic pain and AUB H/O tubal ligation (09/22/07) Performed by Dr. Martinez at [facility] in [place], [place] Family History Father Heart disease Family/Other Breast cancer maternal aunt, 30's Grandmother Hypertension maternal Denies family history of Colon cancer Ovarian cancer Diabetes Clotting disorder Hyperlipidemia Anesthesia complication Bleeding disorder Cancer Uterine cancer Thyroid disease Stroke Social History Smoking and tobacco/nicotine status: never used tobacco/nicotine Alcohol intake: never Substance/Drug Use: never Female Reproductive History Spontaneous abortions: No Data Anesthesia Cardiac Studies: No Data to Display
[2024-03-18] MEDS: acetaminophen 1,000 MG/100 ML PIGGYBACK 400 MG IV (08:38)
[2024-03-18] MEDS: scopolamine 1.5 Patch 1 PATCH TRANSDERMA (08:39)
[2024-03-18] MEDS: famotidine 20 mg/2 mL INJ IVP (08:40)
[2024-03-18] MEDS: sodium chloride 0.9% 1,000 ML 30 ML IV (08:40)
--- NOTE | 2024-03-18 09:07 | ANES.PROC ---
Anesthesia Procedures Procedure/Date: 03/18/24 Nerve Block ^: Nerve Block 1: Main Anesthesia: other (100mcg fentanyl and 2mg versed given) Time Out Performed: Yes Consent: requested by attending/covering physician Nerve block location: interscalene Anesthesia monitors applied: pulse oximetry, EKG, BP cuff and oxygen Nerve block position: supine Anesthetic Used: ropivicaine 0.5% Amount of anesthesia used (mL): 30 Ultrasound used to: recognize landmarks Nerve Stimulator Used?: Yes Interscalene/Femoral BLK: other needle (pjunk 4inch) Injection: neg aspiration of heme Patient Tolerated Procedure: well Complications: none Additional Comments: 4mg decadron given
--- NOTE | 2024-03-18 09:16 | W.PM.OPSFHP ---
Same Day Surgery H&P Indication for Procedure/HPI DATE OF PROCEDURE: March 18, 2024 CHIEF COMPLAINT/INDICATIONFOR SURGICAL PROCEDURE: Right shoulder subacromial impingement, AC joint arthritis, bicep tendinitis/tearing PREOP DIAGNOSIS: Right shoulder subacromial impingement, AC joint arthritis, bicep tendiniti PLANNED PROCEDURE: Operation Date: 03/18/24 09:45 Proposed Procedures p Shoulder Arthroscopy(Right) - Jeffery Ventura DO s Subacromial Decompression(Right) - Jeffery Ventura DO s AC Joint Resection(Right) - Jeffery Ventura DO s Bicep Tenodesis(Right) - Jeffery Ventura DO Medications/Allergies* Home Medications Medication Instructions Recorded Confirmed Type albuterol sulfate 2.5 mg/3 mL 2.5 mg inhalation Q4H PRN 05/31/20 03/10/24 History (0.083 %) solution for nebulization shortness of breath or wheezing meloxicam 7.5 mg tablet 7.5 mg PO DAILY 02/04/24 03/10/24 History omeprazole 20 mg capsule,delayed 20 mg PO DAILY 02/04/24 03/10/24 History release vit 168-iron 27 mg-folic 1 cap PO DAILY 02/04/24 03/10/24 History acid 800 mcg-omega3 235 mg capsule (One-A-Day -1) cetirizine 10 mg tablet 10 mg PO BEDTIME 03/10/24 03/10/24 History loratadine 10 mg tablet 10 mg PO DAILY 03/10/24 03/10/24 History Allergies/Adverse Reactions Allergy/AdvReac Type Severity Reaction Status Date / Time aspirin Allergy ADR-Nausea Verified 02/04/24 09:57 Current Medications: Generic Name Dose Route Start Last Admin Trade Name Freq PRN Reason Stop Dose Admin Sodium Chloride 1,000 mls @ 30 mls/hr 03/18/24 08:15 03/18/24 08:40 Sodium Chloride 0.9% IV 03/19/24 08:14 30 mls/hr .Q24H MATEO Administration Pertinent History/Comorbid Conditions* Medical History (Updated 02/09/24 @ 21:16 by Jeffery Ventura DO) No pertinent past medical history neghx: htn,dm,thyroid,dvt/pe PCP: [facility] in [facility] -- Dr. Corny Insomnia Menometrorrhagia Asthma GERD (gastroesophageal reflux disease) Seasonal allergic rhinitis Surgical History (Updated 11/21/22 @ 14:13 by Willa Mora APN, BLANQUITA) S/P bladder repair (~11/14/22) Single incision mid urethral sling; coloplast altis sling performed by Marc at [facility], for mixed urinary incontinence Hx of hysterectomy (~12/21/21) TVH with bilateral salpingectomy performed by Dr. Tran at [facility] for chronic pelvic pain and AUB H/O tubal ligation (09/22/07) Performed by Dr. Martinez at [facility] in [place], [place] Family History (Updated 10/24/21 @ 12:54 by Roseline Howard RN) Heart disease Father Breast cancer Family/Other maternal aunt, 30's Hypertension Grandmother maternal Denies family history of Colon cancer Ovarian cancer Diabetes Clotting disorder Hyperlipidemia Anesthesia complication Bleeding disorder Cancer Uterine cancer Thyroid disease Stroke Social History Smoking and tobacco/nicotine status: never used tobacco/nicotine Alcohol intake: never Substance/Drug Use: never Pertinent Exam Findings alert, oriented x 3, operative site marked and procedure specific exam findings Please refer to detailed orthopedic examination on 02/04/2024 listed below: Right shoulder exam: C-Spine ROM: Normal C-spine range of motion without pain Spurlings: Negative ROM: Passive :180 degrees pain on end ranges Active: 90 degrees TTP tender to palpation over AC joint, bicipital groove, lateral shoulder, posterior shoulder O'Briens:Positive Jobes: positive and Pain with weakness Naqvi Impingement:Positive Speeds Test: Positive Crossover/Neers test:Positive Recommendations Surgery/Procedure today Other Plans: MR/MR shoulder RT wo con* [id number] IMPRESSION: 1. Mild AC joint arthropathy similar to the prior study. 2. Moderate subacromial impingement. Enlarging subacromial osteophyte measuring 8 x 5 mm impinging upon the distal supraspinatus tendon. 3. No rotator cuff tear. 4. No labral tear. 5. New focal split tear biceps tendon in the bicipital groove. Plan to proceed to the OR today for right shoulder diagnostic and surgical arthroscopy with subacromial decompression, AC joint resection, possible biceps tenodesis. Patient understands the ins and outs procedure the risk benefits complication alternatives surgery and through shared decision-making elects proceed with surgical intervention. All questions answered at this time. Coding Level of Care Code Acute Code for Chg Fwdamian
--- NOTE | 2024-03-18 09:31 | PC.NURSE ---
0900 : patient placed on 2l O2 via nasal canulla and placed on the vital sign monitor throughout the block procedure, right shoulder nerve block administered by STEPHANIE. 30 ml ropivicaine injected using ultrasound guidance.
[2024-03-18] MEDS: ceFAZolin 2,000 MG in sodium chloride 0.9% (plus) 50 ML 100 MG IV (09:33)
[2024-03-18] MEDS: EPINEPHrine 1 mg/mL INJ 2 MG XX (10:11)
--- NOTE | 2024-03-18 10:37 | P.BOP_ITS ---
Date of Procedure: 03/18/2024 Surgeon: Jeffery Ventura DO Board Stacker(s): Henrique Ventura PA-C Procedure(s) performed: Right shoulder diagnostic and surgical arthroscopy with subacromial decompression (acromioplasty and bursectomy) Right shoulder diagnostic and surgical arthroscopy with AC joint resection (distal clavicle excision) Findings of the procedure(s): Patient was found to have subacromial impingement and AC joint arthritis rotator cuff was intact as well as pristine intra- articular biceps tendon patient or procedure as planned without issues or complications. Estimated blood loss: 1 mL Specimen(s) removed: None Post-operative diagnosis: Right shoulder subacromial impingement, AC joint arthritis
--- NOTE | 2024-03-18 10:39 | P.OP_ITS ---
Operative Report Date of procedure: March 18, 2024 Surgeon: Jeffery Ventura DO Design Specialist: Henrique Ventura PA-C: PA was necessary for assistance in this case with shoulder positioning to execute the procedure, assistance with instrumentation, as well as implant fixation when necessary, assist with wound closure and dressing application. Procedure: Preoperative diagnosis: Right shoulder AC joint arthritis, subacromial impingement, biceps tendinitis/tearing Post-op diagnosis: Right?shoulder?AC joint arthritis Right?shoulder?subacromial bursitis/impingement Procedure done: Right?shoulder?diagnostic and surgical arthroscopy acromioclavicular joint resection (distal clavicle excision) Right?shoulder?diagnostic and surgical arthroscopy subacromial decompression (acromioplasty and bursectomy) Surgeon: Jeffery Ventura DO Estimated blood loss: 1mL IV fluids: See anesthesia record Implants: None Complications: None Condition: stable Disposition: same day Brief History: Patient been seen and worked up in the outpatient setting for?right?shoulder?pain.? Pt had an MRI which showed findings below.? Patient's failed conservative treatment and has weakness.? We talked about treatment options far as nonoperative and operative intervention..? We talked about risk benefits complication alternatives surgical nonsurgical treatment options.? Understanding risk of surgery patient agrees to proceed with surgical intervention.? All questions have been answered at this time.? Patient elects proceed with surgery and consent obtained for right shoulder diagnostic and surgical arthroscopy with subacromial decompression, AC joint resection, possible biceps tenodesis. MR/MR shoulder RT wo con* [id number] IMPRESSION: 1. Mild AC joint arthropathy similar to the prior study. 2. Moderate subacromial impingement. Enlarging subacromial osteophyte measuring 8 x 5 mm impinging upon the distal supraspinatus tendon. 3. No rotator cuff tear. 4. No labral tear. 5. New focal split tear biceps tendon in the bicipital groove. Procedure: Patient seen evaluated in the preoperative holding area.? Consent reviewed and signed with patient.? Once again reviewed patient's MRI results as well as? planned surgical intervention.? Correct extremity marked.? Patient seen evaluated by anesthesia department received regional anesthesia.? Once ready for surgery was taken back to the operative suite.? Patient then subsequently underwent anesthesia per the anesthesia department was transported onto the OR table.? Patient was then placed into a lateral decubitus position with a beanbag and was appropriately secured to the bed.? All bony prominences well-padded.? Patient then had the?right?upper extremity was then prepped and draped in standard orthopedic fashion.? Patient received appropriate preoperative antibiotics.? Final timeout performed. The?right?upper extremity was then held in hanging from traction utilizing sterile technique.? Next started with standard diagnostic and surgical arthroscopy with posterior portal position introduced arthroscope into the glenohumeral joint.? Visualized the glenohumeral joint I then introduced a spinal needle within the rotator cuff interval to confirm appropriate anterior portal placement.? Once this was confirmed I then made my small incision and then introduced my arthroscopic shaver into the glenohumeral joint.? After thorough debridement of the joint the biceps tendon was inspected and was intact and pristine there was no inflammation I did pull this into the joint from the intertubercular groove and no evidence of tearing was noted. I also inspected the superior labral bicep tendon complex and this was intact with no evidence of superior labral instability. Rest of the labrum was intact. No biceps tenodesis or tenotomy was performed. Next I evaluated the subscapularis tendon which was intact and no evidence of tear. This point time I then visualized the glenohumeral joint.? The glenohumeral joint was found to have grade 1? chondromalacia throughout.? Axillary pouch was free of loose bodies from viewing the posterior portal.? Next a visualized the rotator cuff superiorly there is a negative escape bubble sign rotator cuff was intact and the articular side. This completed my work within the glenohumeral joint all fluid was suctioned free of the joint.? ?Next I reintroduced the arthroscope posteriorly.? And went to the subacromial space.? I established my lateral working portal at the site of which my spinal needle was marking of the rotator cuff tear.? Thermal wand was then introduced laterally and then I subsequently performed extensive bursectomy of the subacromial space.? Patient had a large anterior bone spur.? At this point time I proceeded with my AC joint resection thermal wand was used and track to the anterior edge of the acromion and then tracked all the way to the AC joint.? Once identified the AC joint this was very arthritic in nature.? Thermal wand was placed anteriorly to establish appropriate plane for AC joint resection.? Once appropriate margins and anterior inferior and anterior capsule was released I then introduced arthroscopic shaver and a bur and performed AC joint resection of both the acromion to cope plane at the AC joint and a distal clavicle resection was then performed totaling 1 cm in size and was confirmed.? This completed my AC joint resection and I then introduced the arthroscopic shaver laterally while continuing to view posteriorly.? I then performed an acromioplasty to complete my subacromial decompression prior to evaluating rotator cuff.? Next the arthroscopic shaver used to complete the bursectomy and the rotator cuff was inspected from the posterior portal this was completely intact taken through range of motion there was no evidence of rotator cuff tear. ?I then switched the arthroscope to the lateral portal to once again confirmed no evidence of rotator cuff tear as the shoulder was taken through range of motion of the rotator cuff was intact. ?Next I then introduced the arthroscopic shaver posteriorly to complete my subacromial decompression appropriate complaining all the way up to the lateral edge of the acromion.? This completed the surgery.? All fluid was suctioned from the?shoulder.? All instruments were removed.? The lateral incision was then closed with nylon stitches.? As well as the portal sites closed with portal nylon stitches.? Xeroform 4 x 4's ABD and tape was then applied to the?right?shoulder?and was placed into a?shoulder? sling. Patient was then awakened from anesthesia and then taken back to PACU in stable condition.? Patient tolerated procedure without any issues. Disposition: Patient taken back in stable condition recovering well.? Dressings on in place clean dry and intact.? Will be nonweightbearing to the?right?upper extremity.?Patient to follow-up with me in the office in 2 weeks.? Patient will receive appropriate discharge instruction as well as pain medication postoperatively.? All questions answered.? We will contact the office for any questions or concerns.
--- NOTE | 2024-03-18 10:53 | PM.PACU ---
PACU note Narrative: Patient is a 43-year-old female who just underwent a right shoulder arthroscopy. Patient transferred to PACU in stable condition. Pain is well controlled. shoulder Dressing on , dry and in place. Patient's operative arm is in a shoulder immobilizer. Patient is awake and alert and able to respond to my questions accordingly. Patient's fingers are warm with good perfusion. Normal cap refill under 2 seconds. Unable to assess further range of motion in arm due to sling. Unable to assess sensation due to residual localized anesthetic. Exam: awake Disposition: discharged
--- NOTE | 2024-03-18 12:05 | ANE.PACU2 ---
Inpatient post-anesthesia follow up: Airway intact: Yes Vital signs: Temperature 97.2 F Pulse Rate 96 Respiratory Rate 18 Blood Pressure 138/82 Pulse Oximetry 98 Oxygen Delivery Me thod Room Air Oxygen Flow Rate 8 Fraction of Inspir ed Oxygen Hydration adequate: Yes Nausea and vomiting: No Pain level: 1 Mental status: Baseline
== END 2024-03-18 12:05 | disposition home or self-care (01) ==
PROVIDERS: PCP Family Medicine; Visit Provider Student in an Organized Health Care Education/Training Program
PROC: (CPT 29805; principal; 2024-03-18 09:25)
PROC: (CPT 29826; 2024-03-18 09:25)
PROC: 0RSG0ZZ Reposition Right Acromioclavicular Joint, Open Approach (ICD-10-PCS; CPT 29824; 2024-03-18 09:25)
DX: M19.011 Primary osteoarthritis, right shoulder (principal); M25.811 Other specified joint disorders, right shoulder; K21.9 Gastro-esophageal reflux disease without esophagitis
CPT/HCPCS: 29824; 29826; J0131; J0171; J0690; J1100; J2250; J2405; J2704; J3010; J3490; J7030

== ENCOUNTER → 2024-04-15 12:32 | Outpatient (BNVA) | payer MEDICAID, SELFPAY | PROVIDERS: PCP Family Medicine; Visit Provider Physician Assistant | DX: Z98.890 Other specified postprocedural states (principal) | CPT/HCPCS: 99024 ==

== ENCOUNTER → 2024-06-24 13:26 | Outpatient (BNVA) | payer MEDICAID, SELFPAY | PROVIDERS: PCP Family Medicine; Visit Provider Student in an Organized Health Care Education/Training Program | DX: Z98.890 Other specified postprocedural states (principal) | CPT/HCPCS: 99213 ==

== ENCOUNTER 2024-12-24 08:40 | Outpatient (CLI) | payer MEDICAID, SELFPAY ==
--- NOTE | 2024-12-24 08:45 | MM_ITS ---
WS: [id number] SCREENING DIGITAL BREAST TOMOSYNTHESIS MAMMOGRAM WITH CAD HISTORY: SCREENING COMPARISON: 12/10/2023, 09/11/2022 Bilateral CC and MLO with tomosynthesis and synthetic mammography submitted. Computer aided detection analyzed. Breast composition: There are scattered areas of fibroglandular density. Irregular indistinct mass of increased density in the central anterior RIGHT breast measures 4 x 5 x 5 mm. This mass is new since the prior study. No additional abnormalities within either breast. No suspicious grouping of calcifi cation. MM/MM scr tomosynthesis [id number] IMPRESSION: BI-RADS: 0 - Incomplete: Need additional imaging evaluation. FOLLOW UP: Need Additional Imaging RIGHT breast: Spot compression views (CC and MLO). True ML. Ultrasound to follo w if abnormality persists.
== END 2024-12-24 08:41 | disposition home or self-care (01) ==
LOC: RAD 08:41
PROVIDERS: PCP Family Medicine; Visit Provider Nurse Practitioner Family
DX: Z12.31 Encounter for screening mammogram for malignant neoplasm of breast (principal); R92.323 Mammographic fibroglandular density, bilateral breasts; N63.41 Unspecified lump in right breast, subareolar
CPT/HCPCS: 77063; 77067

== ENCOUNTER 2025-02-01 10:58 | Outpatient (CLI) | payer MEDICAID, SELFPAY ==
--- NOTE | 2025-02-01 11:04 | MM_ITS ---
WS: [id number] ADDITIONAL VIEWS RIGHT MAMMOGRAM WITH DIGITAL BREAST TOMOSYNTHESIS. HISTORY: ABNORMAL MAMMOGRAM COMPARISON: 12/24/2024, 12/10/2023, 09/11/2022 Spot compression views RIGHT breast in CC, MLO projections and true ML submitted with digital breast tomosynthesis and SM. Breast composition: There are scattered areas of fibroglandular density. The asymmetry seen in the central RIGHT breast resolves with additional imaging and spot compression views. There is no distortion or mass identified. MM/MM diag RT tomosynthesis [id number] IMPRESSION: BI-RADS: 2 - Benign. FOLLOW UP: 1 Year Follow-up Return to annual screening mammography.
== END 2025-02-01 10:59 | disposition home or self-care (01) ==
LOC: RAD 10:58
PROVIDERS: PCP Family Medicine; Visit Provider Nurse Practitioner Family
DX: R92.8 Other abnormal and inconclusive findings on diagnostic imaging of breast (principal); R92.321 Mammographic fibroglandular density, right breast
CPT/HCPCS: 77061; G0279